=== PATIENT | male | born 1985 | race Caucasian/White ===

== ENCOUNTER 2018-04-28 06:46 | Day surgery (SDC) | payer MEDICAID ==
[~2018-04-28] VITALS: Ht 172.7 cm; Wt 73.9 kg
[2018-04-28] VITALS (7 sets, daily range): BP systolic 83–115; BP diastolic 69–82
[~2018-04-28 06:46] MED LIST: ACET-1008 GT; ALB0.5UD NEB; ATRO10DR EACHEYE; BISA10SU8 RC; CLOB20TA GT; CLON-527 GT; DIAZ1KIT2 RC; EUCA50OI5 TP; FAMO20TA8 GT; FOLI1TAB GT; IBUP-1984 GT; KEP500T GT; LACT-193 GT; LORA-512 GT; MAGN800O GT; NA P133E4 RC; POLY17PO10 GT; RISP0.257 GT; RISP0.5T74 GT; SENN-129 GT; VALP250S GT; famotidine 10mg/ml inj IV ONE; ringers solution, lacted 1,000 ML IV SCH
[2018-04-28] MEDS ORDERED: LIDOcaine 2% 10ml TOPICAL JELLY (Urojet) ONE (07:16)
[2018-04-28] MEDS ORDERED: oxymetazoline 15 ML nasal spray NS ONE (07:16)
[2018-04-28] MEDS ORDERED: LIDOcaine 1% (10mg/ml) 2ml vial ONE (07:22)
[2018-04-28] MEDS ORDERED: ringers solution, lacted 1,000 ML IV SCH (08:19)
[2018-04-28] MEDS ORDERED: labetalol 20mg/4ml (5mg/ml) syringe IV PRN (08:20)
[2018-04-28] MEDS ORDERED: fentaNYL/PF 50MCG/1 ML 2ML syringe IV PRN ×2 (08:20)
[2018-04-28] MEDS ORDERED: hydrALAZINE 20mg/ml inj. IV PRN (08:20)
[2018-04-28] MEDS ORDERED: ondansetron/PF 4mg/2ml inj IV PRN (08:20)
[2018-04-28] MEDS ORDERED: morphine 4 MG/ML inj SYRINge IV PRN ×2 (08:20)
[2018-04-28] MEDS ORDERED: sevoflurane 250ml liquid IH ONE (09:25)
[2018-04-28] MEDS ORDERED: dexamethasone sod phosphate 10mg/ml inj ONE (09:25)
[2018-04-28] MEDS ORDERED: ondansetron/PF 4mg/2ml inj ONE (09:25)
[2018-04-28] MEDS ORDERED: fentaNYL/PF 50MCG/1 ML 2ML syringe ONE ×2 (09:27→10:19)
[2018-04-28] MEDS ORDERED: midazolam 2 mg/2 ml injection ONE ×2 (09:28→10:19)
[2018-04-28] MEDS ORDERED: LIDOcaine 2% (20mg/ml) 5ml vial ONE (09:29)
[2018-04-28] MEDS ORDERED: propofol inj 20 ML IV ONE (09:29)
[2018-04-28] MEDS ORDERED: dexamethasone sod phosphate 4mg/ml inj. ONE (09:30)
[2018-04-28] MEDS ORDERED: rocuronium 10mg/ml inj IV ONE (09:30)
[2018-04-28] MEDS ORDERED: naloxone 0.4 mg/ml inj ONE (11:17)
== END 2018-04-28 12:29 | disposition home or self-care (01) ==
LOC: PAS 06:46
PROVIDERS: ATTEND Dentist
DX: K05.10 Chronic gingivitis, plaque induced (principal); K03.6 Deposits [accretions] on teeth; G40.909 Epilepsy, unspecified, not intractable, without status epilepticus; G80.8 Other cerebral palsy; F71 Moderate intellectual disabilities; J45.998 Other asthma; Z87.01 Personal history of pneumonia (recurrent); Z93.1 Gastrostomy status; Z79.891 Long term (current) use of opiate analgesic; Z88.1 Allergy status to other antibiotic agents; Z79.1 Long term (current) use of non-steroidal anti-inflammatories (NSAID); Z98.890 Other specified postprocedural states; Z79.899 Other long term (current) drug therapy
CPT/HCPCS: 41899; J1100; J2001; J2250; J2310; J2405; J2704; J3010; J3490; J7120; A7000

== ENCOUNTER 2022-11-27 08:41 | Inpatient (IN) | payer MEDICAID ==
[~2022-11-27] VITALS: Ht 167.6 cm; Wt 81.0 kg
[~2022-11-27 08:41] MED LIST changes: +BISA10SU11 RC; -BISA10SU8 RC; +MAGN24002 GT; -MAGN800O GT; -famotidine 10mg/ml inj IV ONE; -ringers solution, lacted 1,000 ML IV SCH
[2022-11-27] MEDS ORDERED: diatrozoate meglu/diatrozoate sod (37% iodine) 120ML oral solution PO ONE (09:45)
[2022-11-27] MEDS ORDERED: diatr meglu/diatrizoate 30ml oral sol.-(3 dose) bottle PO ONE (10:00)
--- NOTE | 2022-11-27 11:33 | NUR ---
Vital signs rechecked,hypoxic 89-90% on 4L oxygen.Payton made aware,wanted records from [facility] from Visit yesterday.
[2022-11-27] MEDS ORDERED: levetiracetam 100mg/ml oral solution 5ml UD cup PO ONE (12:36)
[2022-11-27 13:29] LABS: BASOPHILS % (AUTO) 0.1 % (0-1); EOSINOPHILS % (AUTO) 0 % (0-6); HEMATOCRIT 51.5 % (42.0-52.0); HEMOGLOBIN 17.7 g/dl (14.0-17.9); LYMPHOCYTES # (AUTO) 0.6 X10'3 (1.1-4.8); LYMPHOCYTES % (AUTO) 14.4 % (21-51); MEAN CORPUSCULAR HEMOGLOBIN 34.6 PG (27.0-31.0); MEAN CORPUSCULAR HGB CONC 34.5 g/dL (33.0-36.5); MEAN CORPUSCULAR VOLUME 100.3 FL (78-98); MEAN PLATELET VOLUME 9.7 FL (7.4-10.4); MONOCYTES # (AUTO) 0.1 X10'3 (0-0.9); MONOCYTES % (AUTO) 3.1 % (2-12); NEUTROPHILS # (AUTO) 3.6 X10'3 (1.8-7.7); NEUTROPHILS % (AUTO) 82.4 % (42-75); PLATELET COUNT 166 X10'3 (140-440); RED BLOOD COUNT 5.13 X10'6 (4.70-6.10); RED CELL DISTRIBUTION WIDTH 12.4 % (11.5-14.5); WHITE BLOOD COUNT 4.4 X10'3 (4.5-11.0)
[2022-11-27 13:34] LABS: ALANINE AMINOTRANSFERASE 24 U/L (12-78); ALBUMIN 3.5 G/DL (3.4-5.0); ALBUMIN/GLOBULIN RATIO 0.7 (1.1-1.5); ALKALINE PHOSPHATASE 104 IU/L (46-116); ANION GAP 5 (8-16); ASPARTATE AMINO TRANSFERASE 22 U/L (10-37); BILIRUBIN,TOTAL 0.4 MG/DL (0.1-1.0); BLOOD UREA NITROGEN 12 MG/DL (7-18); BUN/CREATININE RATIO 18.2 (10.0-20.0); CALCIUM 10.1 MG/DL (8.5-10.1); CHLORIDE 99 MMOL/L (99-107); CREATININE 0.66 MG/DL (0.60-1.10); GLUCOSE 130 MG/DL (70-104); POTASSIUM 4.4 MMOL/L (3.5-5.1); SODIUM 138 MMOL/L (135-145); TOTAL CARBON DIOXIDE 33.8 MMOL/L (24-32); TOTAL PROTEIN 8.5 G/DL (6.4-8.2); eGFR > 90 ML/MIN
--- NOTE | 2022-11-27 13:54 | NUR ---
Called pharmacy, gurjit will be available for orange picker in 15 minutes, Payton TURK made aware.
[2022-11-27] MEDS ORDERED: LIDOcaine 2% 10ml TOPICAL JELLY (Urojet) MM STA (14:21)
[2022-11-27] MEDS ORDERED: LidoCAINE 2% Topical Jelly 11mL syringe MM STA (14:24)
--- NOTE | 2022-11-27 14:59 | NUR ---
ERIC [phone] WORKED WITH PATIENT FOR 4 YEARS
[2022-11-27 15:13] LABS: D-DIMER 6.72 MG/L FEU (0-0.50)
[2022-11-27] MEDS ORDERED: iohexol 350MG/ML 100ml bottle IV ONE (16:16)
--- NOTE | 2022-11-27 17:17 | NUR ---
patient back in the room from CT.
[2022-11-27] MEDS ORDERED: piperacillin/tazo 3.375gm/50ml 50 ML IV ONE (18:20)
--- NOTE | 2022-11-27 20:09 | NUR ---
Large liquid avila BM
[2022-11-27] MEDS ORDERED: ondansetron/PF 4mg/2ml inj IV PRN (20:10)
[2022-11-27] MEDS ORDERED: acetaminophen 325mg tablet PO PRN ×2 (20:10)
[2022-11-27] MEDS ORDERED: magnesium 4gm in 100ml NS 100 ML IV PRN (20:10)
[2022-11-27] MEDS: normal saline 1000ml 1,000 ML IV SCH (20:10)
[2022-11-27] MEDS ORDERED: magnesium Cl slow-release 64mg tablet PO PRN (20:10)
[2022-11-27] MEDS ORDERED: potassium Cl 20 mEq SR tablet PO PRN ×2 (20:10)
[2022-11-27] MEDS ORDERED: potassium Cl 40MEQ/1/2NS 520ml 520 ML IV PRN (20:10)
[2022-11-28 02:10] LABS: BASOPHILS % (AUTO) 0.2 % (0-1); EOSINOPHILS % (AUTO) 0.2 % (0-6); HEMATOCRIT 48.5 % (42.0-52.0); HEMOGLOBIN 16.7 g/dl (14.0-17.9); LYMPHOCYTES # (AUTO) 2.5 X10'3 (1.1-4.8); LYMPHOCYTES % (AUTO) 29.5 % (21-51); MEAN CORPUSCULAR HEMOGLOBIN 34.5 PG (27.0-31.0); MEAN CORPUSCULAR HGB CONC 34.4 g/dL (33.0-36.5); MEAN CORPUSCULAR VOLUME 100.3 FL (78-98); MEAN PLATELET VOLUME 9.4 FL (7.4-10.4); MONOCYTES # (AUTO) 1.5 X10'3 (0-0.9); NEUTROPHILS # (AUTO) 4.4 X10'3 (1.8-7.7); NEUTROPHILS % (AUTO) 52.1 % (42-75); PLATELET COUNT 186 X10'3 (140-440); RED BLOOD COUNT 4.84 X10'6 (4.70-6.10); RED CELL DISTRIBUTION WIDTH 12.2 % (11.5-14.5); WHITE BLOOD COUNT 8.5 X10'3 (4.5-11.0)
[2022-11-28 02:32] LABS: ALANINE AMINOTRANSFERASE 18 U/L (12-78); ALBUMIN 3.3 G/DL (3.4-5.0); ALBUMIN/GLOBULIN RATIO 0.8 (1.1-1.5); ALKALINE PHOSPHATASE 93 IU/L (46-116); ANION GAP 6 (8-16); ASPARTATE AMINO TRANSFERASE 22 U/L (10-37); BILIRUBIN,TOTAL 0.5 MG/DL (0.1-1.0); BLOOD UREA NITROGEN 16 MG/DL (7-18); BUN/CREATININE RATIO 21.9 (10.0-20.0); CHLORIDE 103 MMOL/L (99-107); CREATININE 0.73 MG/DL (0.60-1.10); GLUCOSE 96 MG/DL (70-104); POTASSIUM 3.7 MMOL/L (3.5-5.1); SODIUM 140 MMOL/L (135-145); TOTAL CARBON DIOXIDE 30.6 MMOL/L (24-32); TOTAL PROTEIN 7.7 G/DL (6.4-8.2); eGFR > 90 ML/MIN
[2022-11-28 05:12] LABS: ANISOCYTOSIS FEW; PLATELET ESTIMATE NORMAL; TOTAL CELLS COUNTED 100
[2022-11-28] MEDS: cefepime 1GM/NS ADD-VANTAGE 100 ML IV SCH ×2 (06:46→21:41)
[2022-11-28] MEDS: heparin, porcine 5000 units/ml vial SQ SCH ×2 (08:00→21:49)
--- NOTE | 2022-11-28 08:50 | NUR ---
Pt's caregiver, Agatha ([phone]), at bedside and states pt is having a seizure. pt's seizure self resolved quickly. Agatha asking if seizure medications are going to be continued here. paged for pt.
--- NOTE | 2022-11-28 09:00 | NUR ---
Dr. Christianson called about pt's seizure medications. states to update med rec. Dr. Christianson asked if it's ok to use pt's Peg tube. per , ok to use. asked about pt's home feedings, if they are to be continued here. Per , "Dietary usually does that." Dietary consult placed.
[2022-11-28] MEDS ORDERED: METH-798 (09:20)
[2022-11-28] MEDS ORDERED: MIRT-88 PO (09:20)
[2022-11-28] MEDS ORDERED: CLOB10TA17 (09:20)
[2022-11-28] MEDS ORDERED: MULT-1085 PO (09:20)
[2022-11-28] MEDS ORDERED: LACO200T2 PO (09:20)
[2022-11-28] MEDS ORDERED: DIAZEPAM 10 MG RC PRN (09:30)
[2022-11-28] MEDS ORDERED: sennosides/docusate sodium tablet PEG PRN (09:30)
[2022-11-28] MEDS ORDERED: clonazePAM 1mg tablet PEG PRN (09:30)
[2022-11-28] MEDS ORDERED: bisacodyl 10mg suppository rectal RC PRN (09:30)
--- NOTE | 2022-11-28 10:03 | NUR ---
TF Consult: Pt hx developmental delay and cerebral palsy GTF dependent per EMR/RN today. Pt admit s/p G-tube falling out now w/ G-tube replaced but DX suspected aspiration PNA per EMR. GTF to resume today per DO; updated recs below w/ slight change to home EN recs given DX. Per caregiver Agatha [phone], pt uses 5 cans Jevity 1.2 for QID feeds 1.5 cans first two boluses and two cans last two boluses. This would actually be 7 cartons/day of Jevity 1.2 which would be more appropriate to meet pt needs. Home EN recs providing 1659ml, 1991 kcals, 1339ml water, and 92g protein. Per Agatha, UBW ~176 pounds consistent with current wt in EMR. Large BM / per EMR. Will monitor for TF tolerance and adjustment needs as medically indicated. Rec: 1. Bolus TF per G-tube QID per MD using Jevity 1.2 356ml(1.5 carton) bolus first two feeds and 474ml(2 cartons) bolus last two feeds since pt home regimen. To provide 1659ml volume/day, 1991 kcals, 1339ml water, and 92g protein 2. additional water flush 85ml before/after feeds; monitor serum Na 3. monitor for EN tolerance and adjustment needs 4. routine MVI supplementation since pt takes at home w/ elevated MCV 100.3 per physician discretion 5. routine bowel care 6. weekly wts Addendum: 11/28/22 at [address] Amended: Links added. Addendum: 11/28/22 at [address] TF Consult: Pt hx developmental delay and cerebral palsy GTF dependent per EMR/RN today. Pt admit s/p G-tube falling out now w/ G-tube replaced but DX suspected aspiration PNA per EMR. GTF to resume today per DO; updated recs below w/ slight change to home EN recs given DX. Per caregiver Agatha [phone], pt uses 5 cans Jevity 1.2 for QID feeds 1.5 cans first two boluses and two cans last two boluses. This would actually be 7 cartons/day of Jevity 1.2 which would be more appropriate to meet pt needs. Home EN recs providing 1659ml, 1991 kcals, 1339ml water, and 92g protein. Per Agatha, UBW ~176 pounds consistent with current wt in EMR. Large BM 4/1 per EMR. Will monitor for TF tolerance and adjustment needs as medically indicated. Rec: 1. Bolus TF per G-tube QID per MD using Jevity 1.2 356ml(1.5 carton) bolus first two feeds and 474ml(2 cartons) bolus last two feeds since pt home regimen. To provide 1659ml volume/day, 1991 kcals, 1339ml water, and 92g protein 2. additional water flush 85ml before/after feeds; monitor serum Na 3. monitor for EN tolerance and adjustment needs 4. PALB Q /; daily scaled wts 5. routine MVI supplementation since pt takes at home w/ elevated MCV 100.3 per physician discretion 6. routine bowel care
[2022-11-28] MEDS ORDERED: non-formulary drug (Na Phos,M-B/Na Phos,Di-Ba* (Fleet's Enema*) 1 BOTTLE) RC PRN (10:50)
[2022-11-28] MEDS ORDERED: magnesium hydroxide 30ml (MOM) UD suspension OGT PRN (10:50)
[2022-11-28] MEDS ORDERED: polyethylene glycol 3350 17gm powd pack GT PRN (10:50)
--- NOTE | 2022-11-28 11:08 | NUR ---
PLATELETS 186
[2022-11-28] MEDS ORDERED: LACOSAMIDE (Vimpat) 100mg/10ml (10 MG/ML) oral UD solution OGT SCH (11:24)
[2022-11-28] MEDS ORDERED: levetiracetam 100mg/ml oral solution 5ml UD cup OGT SCH (11:24)
--- NOTE | 2022-11-28 11:27 | NUR ---
428 ml of jevity 1.2 given through peg tube. peg tube flushed with 60 ml of water prior to feeding and 100 ml after feeding. pt tolerated well. Dr. Francis at bedside.
[2022-11-28] MEDS ORDERED: magnesium hydroxide 30ml (MOM) UD suspension PEG PRN (11:41)
[2022-11-28] MEDS ORDERED: MIRT7.5T11 PO (11:46)
[2022-11-28] MEDS ORDERED: IBUP-2766 PO (12:06)
[2022-11-28] MEDS ORDERED: TRAZ-251 PO (12:08)
[2022-11-28] MEDS: normal saline 1000ml 1,000 ML IV SCH (12:25)
[2022-11-28] MEDS ORDERED: levetiracetam 100mg/ml oral solution 5ml UD cup PO ONE (12:45)
[2022-11-28] MEDS ORDERED: valproate sod 250mg/5ml UD oral syrup PO ONE (12:45)
[2022-11-28] MEDS ORDERED: LACOSAMIDE (Vimpat) 100mg/10ml (10 MG/ML) oral UD solution PO ONE (12:45)
--- NOTE | 2022-11-28 14:38 | NUR ---
PT SLEEPING. CONDOM CATH ON PT. PT TURNED TOWARDS LEFT SIDE. PT SHIFTED LYING ON HIS BACK
--- NOTE | 2022-11-28 16:37 | NUR ---
Dr. Francis contacted about pt not voiding during day shift. per , do a bladder scanner. Per Dr. Francis, "If there is greater than 500, place catheter, but use a urojet."
--- NOTE | 2022-11-28 16:57 | NUR ---
Dr. Francis aware of urine amount seen on bladder scanner. per MD, no need for huddleston right now. Pt to have another bladder scanner in 6 hours
--- NOTE | 2022-11-28 17:56 | NUR ---
428 ml of jevity 1.2 given . 160 ml of water fluhed through peg tube. pt sleeping and tolerated well. condom cath off. pillow floating b/l heels.
[2022-11-28 20:00] VITALS: BP 111/66
[2022-11-28] MEDS ORDERED: mirtazapine 15mg tablet PO SCH ×2 (21:00)
[2022-11-28] MEDS ORDERED: risperiDONE 0.5mg tablet PEG SCH (21:00)
[2022-11-28] MEDS ORDERED: non-formulary drug (Mirtazapine 1 TAB) PO SCH (21:00)
[2022-11-28] MEDS: valproate sod 250mg/5ml UD oral syrup PEG SCH (21:46)
[2022-11-28] MEDS: levetiracetam 100mg/ml oral solution 5ml UD cup PEG SCH (21:47)
[2022-11-28] MEDS: famotidine 20mg tablet PEG SCH (21:47)
[2022-11-28] MEDS: LACOSAMIDE (Vimpat) 100mg/10ml (10 MG/ML) oral UD solution PEG SCH (21:48)
[2022-11-28 22:00] VITALS: BP 107/52
[2022-11-29] MEDS: normal saline 1000ml 1,000 ML IV SCH (00:49)
[2022-11-29 06:00] VITALS: BP 107/65
[2022-11-29] MEDS ORDERED: MULTIVIT-MIN/FERROUS GLUCONATE 9 MG/15 ML LIQUID PEG SCH (08:00)
[2022-11-29] MEDS ORDERED: lactose-reduced food/fiber (Jevity 1.2 Cal) 237ml BOTTLE GT SCH (08:00)
[2022-11-29] MEDS: LACOSAMIDE (Vimpat) 100mg/10ml (10 MG/ML) oral UD solution PEG SCH (08:00)
[2022-11-29] MEDS: cefepime 1GM/NS ADD-VANTAGE 100 ML IV SCH (08:03)
[2022-11-29 08:21] LABS: HEMATOCRIT 44.5 % (42.0-52.0); HEMOGLOBIN 14.9 g/dl (14.0-17.9); MEAN CORPUSCULAR HGB CONC 33.4 g/dL (33.0-36.5); MEAN PLATELET VOLUME 9.2 FL (7.4-10.4); PLATELET COUNT 193 X10'3 (140-440); RED BLOOD COUNT 4.36 X10'6 (4.70-6.10); RED CELL DISTRIBUTION WIDTH 12.1 % (11.5-14.5); WHITE BLOOD COUNT 5.2 X10'3 (4.5-11.0)
[2022-11-29 08:25] LABS: ALANINE AMINOTRANSFERASE 25 U/L (12-78); ALBUMIN 2.8 G/DL (3.4-5.0); ALBUMIN/GLOBULIN RATIO 0.7 (1.1-1.5); ALKALINE PHOSPHATASE 78 IU/L (46-116); ANION GAP 2 (8-16); ASPARTATE AMINO TRANSFERASE 24 U/L (10-37); BILIRUBIN,TOTAL 0.4 MG/DL (0.1-1.0); BLOOD UREA NITROGEN 14 MG/DL (7-18); BUN/CREATININE RATIO 24.1 (10.0-20.0); CALCIUM 8.9 MG/DL (8.5-10.1); CHLORIDE 107 MMOL/L (99-107); CREATININE 0.58 MG/DL (0.60-1.10); GLUCOSE 89 MG/DL (70-104); POTASSIUM 3.9 MMOL/L (3.5-5.1); PREALBUMIN 21.5 MG/DL (19-36); SODIUM 142 MMOL/L (135-145); TOTAL CARBON DIOXIDE 33.5 MMOL/L (24-32); TOTAL PROTEIN 6.7 G/DL (6.4-8.2); eGFR > 90 ML/MIN
[2022-11-29] MEDS: heparin, porcine 5000 units/ml vial SQ SCH (08:31)
[2022-11-29] MEDS: famotidine 20mg tablet PEG SCH (08:32)
[2022-11-29] MEDS: valproate sod 250mg/5ml UD oral syrup PEG SCH (08:33)
[2022-11-29] MEDS: levetiracetam 100mg/ml oral solution 5ml UD cup PEG SCH (08:33)
[2022-11-29 08:55] LABS: TOTAL CELLS COUNTED 100
[2022-11-29 09:00] LABS: PLATELET ESTIMATE NORMAL
[2022-11-29 10:00] VITALS: BP 131/80
[2022-11-29] MEDS ORDERED: CEFD300C3 PO (10:31)
--- NOTE | 2022-11-29 13:15 | NUR ---
Pt dc to previous [facility], transportation via board and care with staff accompanying pt. PIV dc with no complications or s/s of infiltration. Rectal tube that was previously placed by ER staff was DC with no complications prior to dc. Pt 1200 tube feeding was held at [facility] request to complete the feeding at home. All dc instructions and education was provided to board and care staff at time of dc. Presciptions were sent physically with board and care staff and also called into [facility] terminal make up operator care pharmacy by this nurse. Pt was dc with all belongings. VSS, pt at baseline level of comunication and functions per board and care staff.
== END 2022-11-29 13:15 | disposition home or self-care (01) | DRG 252 ==
LOC: ER 08:43 → ED HOLD 20:14 → ORTHO 4S 11-28 19:44
PROVIDERS: ADMIT Internal Medicine; ATTEND Family Medicine
PROC: 0DH63UZ Insertion of Feeding Device into Stomach, Percutaneous Approach (ICD-10-PCS; principal; 2022-11-27)
PROC: B32T1ZZ Computerized Tomography (CT Scan) of Left Pulmonary Artery using Low Osmolar Contrast (ICD-10-PCS; 2022-11-27)
PROC: B3201ZZ Computerized Tomography (CT Scan) of Thoracic Aorta using Low Osmolar Contrast (ICD-10-PCS; 2022-11-27)
PROC: B32S1ZZ Computerized Tomography (CT Scan) of Right Pulmonary Artery using Low Osmolar Contrast (ICD-10-PCS; 2022-11-27)
DX: K94.23 Gastrostomy malfunction (principal); J96.00 Acute respiratory failure, unspecified whether with hypoxia or hypercapnia; J69.0 Pneumonitis due to inhalation of food and vomit; G80.8 Other cerebral palsy; F41.9 Anxiety disorder, unspecified; G40.909 Epilepsy, unspecified, not intractable, without status epilepticus; Y73.8 Miscellaneous gastroenterology and urology devices associated with adverse incidents, not elsewhere classified; Y92.89 Other specified places as the place of occurrence of the external cause; Z88.1 Allergy status to other antibiotic agents; Z79.899 Other long term (current) drug therapy
CPT/HCPCS: 36415; 71045; 71275; 74018; 80053; 83605; 83880; 84134; 84145; 84484; 85007; 85025; 85379; 87040; 87081; 93005; 99285; A4349; G0378; J0692; J1644; J1953; J2543; J3490; J7030; Q9963; Q9967

== ENCOUNTER 2023-04-27 11:10 | Emergency (ER) | payer MEDICAID ==
[~2023-04-27] VITALS: Ht 175.3 cm; Wt 78.2 kg
[~2023-04-27 11:10] MED LIST changes: +CEFD300C3 PO; +CLOB10TA17; -CLOB20TA GT; -IBUP-1984 GT; +IBUP-2766 PO; +LACO200T2 PO; -LORA-512 GT; +METH-798; +MIRT7.5T11 PO; +MULT-1085 PO; -RISP0.257 GT; +TRAZ-251 PO
[2023-04-27 11:46] VITALS: BP 107/78; PULSE 71; RESP 18; TEMP 97.6; O2SAT 98
== END 2023-04-27 14:49 | disposition home or self-care (01) ==
LOC: ER 11:10
DX: K94.23 Gastrostomy malfunction (principal); Z88.1 Allergy status to other antibiotic agents; Z88.8 Allergy status to other drugs, medicaments and biological substances
CPT/HCPCS: 99282; 99284

== ENCOUNTER 2024-01-20 21:27 | Emergency (ER) | payer MEDICAID ==
[~2024-01-20] VITALS: Ht 175.3 cm; Wt 68.0 kg
[~2024-01-20 21:27] MED LIST changes: -CLOB10TA17; +CLOB10TA5
[2024-01-20 21:50] VITALS: BP 111/71; PULSE 52; TEMP 97.3; O2SAT 96
[2024-01-20 22:54] VITALS: RESP 16
[2024-01-20] MEDS: diatr meglu/diatrizoate 30ml oral sol.-(3 dose) bottle PO ONE (22:58)
[2024-01-20] MEDS: diatrozoate meglu/diatrozoate sod (37% iodine) 120ML oral solution PO ONE (22:59)
== END 2024-01-21 00:53 | disposition home or self-care (01) ==
LOC: ER 21:27
DX: K94.29 Other complications of gastrostomy (principal); Z88.1 Allergy status to other antibiotic agents; Z79.899 Other long term (current) drug therapy; Z79.2 Long term (current) use of antibiotics
CPT/HCPCS: 43762; 74018; 99284; B4087; Q9963; A4340

== ENCOUNTER 2024-04-13 11:31 | Inpatient (IN) | payer MEDICAID ==
[~2024-04-13] VITALS: Ht 172.7 cm; Wt 83.0 kg
[~2024-04-13 11:31] MED LIST changes: -CLOB10TA5; +CLOB10TA5 GT; +LACO200T2 GT; -LACO200T2 PO
[2024-04-13 12:35] LABS: ALANINE AMINOTRANSFERASE 36 U/L (12-78); ALBUMIN 3.5 G/DL (3.4-5.0); ALBUMIN/GLOBULIN RATIO 0.9 (1.1-1.5); ALKALINE PHOSPHATASE 122 IU/L (46-116); ANION GAP 5 (8-16); BILIRUBIN,TOTAL 0.5 MG/DL (0.1-1.0); BLOOD UREA NITROGEN 12 MG/DL (7-18); BUN/CREATININE RATIO 18.8 (10.0-20.0); CALCIUM 9.7 MG/DL (8.5-10.1); CHLORIDE 99 MMOL/L (99-107); CREATININE 0.64 MG/DL (0.60-1.10); GLUCOSE 90 MG/DL (70-104); SODIUM 137 MMOL/L (135-145); TOTAL CARBON DIOXIDE 33.5 MMOL/L (24-32); TOTAL PROTEIN 7.6 G/DL (6.4-8.2); eCRCL 154 ML/MIN; eGFR > 90 ML/MIN
[2024-04-13 12:43] LABS: PRO BRAIN NATRIURETIC PEPTIDE < 30 PG/ML (0-125)
[2024-04-13 12:46] LABS: ASPARTATE AMINO TRANSFERASE 21 U/L (10-37); POTASSIUM 4.3 MMOL/L (3.5-5.1)
[2024-04-13 13:30] LABS: BASOPHILS % (AUTO) 0.4 % (0-1); EOSINOPHILS % (AUTO) 0.7 % (0-6); HEMATOCRIT 49.4 % (42.0-52.0); HEMOGLOBIN 16.8 g/dl (14.0-17.9); LYMPHOCYTES # (AUTO) 2.3 X10'3 (1.1-4.8); MEAN CORPUSCULAR HEMOGLOBIN 34.1 PG (27.0-31.0); MEAN CORPUSCULAR VOLUME 100.1 FL (78-98); MEAN PLATELET VOLUME 9.7 FL (7.4-10.4); MONOCYTES # (AUTO) 0.6 X10'3 (0-0.9); MONOCYTES % (AUTO) 12.1 % (2-12); NEUTROPHILS % (AUTO) 40.8 % (42-75); PLATELET COUNT 186 X10'3 (140-440); RED BLOOD COUNT 4.93 X10'6 (4.70-6.10); RED CELL DISTRIBUTION WIDTH 12.8 % (11.5-14.5)
[2024-04-13] MEDS ORDERED: magnesium sulf-water 2g/50mL 50 ML IV PRN (14:15)
[2024-04-13] MEDS ORDERED: potassium Cl 40MEQ/1/2NS 520ml 520 ML IV PRN (14:15)
[2024-04-13] MEDS ORDERED: mag hydrox/Alum hydrox/simeth 30ml oral suspension PO PRN (14:15)
[2024-04-13] MEDS ORDERED: acetaminophen 325mg tablet PO PRN (14:15)
[2024-04-13] MEDS ORDERED: morphine 2 MG/ML inj. syringe IV PRN ×2 (14:15)
[2024-04-13] MEDS ORDERED: potassium Cl 20 mEq SR tablet PO PRN ×2 (14:15)
[2024-04-13] MEDS ORDERED: magnesium sulf-water 4G/100mL 100 ML IV PRN (14:15)
[2024-04-13] MEDS ORDERED: magnesium hydroxide 30ml (MOM) UD suspension PO PRN (14:15)
[2024-04-13] MEDS ORDERED: ondansetron/PF 4mg/2ml inj IV PRN (14:15)
[2024-04-13] MEDS: azithromycin 200mg/5ml oral suspension via UD syringe PEG ONE (14:33)
[2024-04-13] MEDS: azithromycin/NS 500mg/250ml 250 ML IV ONE (14:46)
[2024-04-13] MEDS: normal saline 1000ml 1,000 ML IV SCH (14:46)
[2024-04-13] MEDS ORDERED: diazepam inj 5 MG/ML inj. IV PRN (16:10)
[2024-04-13] MEDS ORDERED: VALP250S3 GT (16:23)
[2024-04-13] MEDS ORDERED: CLON1TAB12 GT (16:23)
[2024-04-13] MEDS ORDERED: LEVE100S GT (16:23)
[2024-04-13] MEDS ORDERED: CENTRUM GT (16:23)
[2024-04-13] MEDS ORDERED: METH-798 GT (16:23)
[2024-04-13] MEDS ORDERED: ALBU2.5V10 NEB (16:23)
[2024-04-13] MEDS ORDERED: LORA5SOL69 GT (16:23)
[2024-04-13] MEDS ORDERED: LACO10SO GT (16:23)
[2024-04-13] MEDS: piperacillin/tazo 4.5gm/100ml 100 ML IV SCH (16:51)
[2024-04-13 17:37] VITALS: BP 103/60; PULSE 61; RESP 20; TEMP 96.8; O2SAT 94
[2024-04-13 18:00] VITALS: BP 106/61; PULSE 61; RESP 18; TEMP 96.8; O2SAT 96
[2024-04-13] MEDS: K and/or MAG REPLACEMENT MC SCH (19:26)
[2024-04-13] MEDS: docusate sod 100mg capsule PO SCH (20:00)
[2024-04-13] MEDS: valproic acid 250mg/5ml UD oral syrup PEG SCH (21:01)
[2024-04-13] MEDS: levetiracetam 250mg tablet PEG SCH (21:01)
[2024-04-13] MEDS: LACOSAMIDE 50 MG TABLET PO SCH (21:01)
[2024-04-13] MEDS: enoxaparin 40mg/0.4ml syringe SQ SCH (21:02)
[2024-04-13 22:00] VITALS: BP 139/71; PULSE 65; RESP 16; TEMP 97.2; O2SAT 99
[2024-04-14] VITALS (7 sets, daily range): BP systolic 89–113; BP diastolic 54–80; PULSE 44–54; RESP 14–17; TEMP 96.8–98; O2SAT 92–98
[2024-04-14] MEDS ORDERED: dextrose 5%-1/2 normal saline 1,000 ML IV SCH (00:30)
[2024-04-14] MEDS: dextrose 5%-water 1,000 ML IV SCH (01:02)
[2024-04-14 06:34] LABS: EOSINOPHILS % (AUTO) 0.8 % (0-6); MEAN PLATELET VOLUME 9.6 FL (7.4-10.4); MONOCYTES # (AUTO) 0.3 X10'3 (0-0.9)
[2024-04-14 06:36] LABS: BASOPHILS % (AUTO) 0.3 % (0-1); HEMATOCRIT 43.1 % (42.0-52.0); HEMOGLOBIN 14.7 g/dl (14.0-17.9); LYMPHOCYTES # (AUTO) 3.2 X10'3 (1.1-4.8); MEAN CORPUSCULAR HEMOGLOBIN 34.1 PG (27.0-31.0); MEAN CORPUSCULAR HGB CONC 34.2 g/dL (33.0-36.5); MEAN CORPUSCULAR VOLUME 99.6 FL (78-98); MONOCYTES % (AUTO) 6.5 % (2-12); NEUTROPHILS % (AUTO) 22.4 % (42-75); PLATELET COUNT 174 X10'3 (140-440); RED BLOOD COUNT 4.32 X10'6 (4.70-6.10); RED CELL DISTRIBUTION WIDTH 12.6 % (11.5-14.5); WHITE BLOOD COUNT 4.5 X10'3 (4.5-11.0)
[2024-04-14 07:02] LABS: ALANINE AMINOTRANSFERASE 19 U/L (12-78); ALBUMIN 2.7 G/DL (3.4-5.0); ALBUMIN/GLOBULIN RATIO 0.8 (1.1-1.5); ALKALINE PHOSPHATASE 85 IU/L (46-116); ANION GAP 5 (8-16); ASPARTATE AMINO TRANSFERASE 17 U/L (10-37); BILIRUBIN,TOTAL 0.5 MG/DL (0.1-1.0); BLOOD UREA NITROGEN 7 MG/DL (7-18); BUN/CREATININE RATIO 16.7 (10.0-20.0); CALCIUM 8.6 MG/DL (8.5-10.1); CHLORIDE 102 MMOL/L (99-107); CREATININE 0.42 MG/DL (0.60-1.10); GLUCOSE 100 MG/DL (70-104); MAGNESIUM 1.8 MG/DL (1.5-2.4); POTASSIUM 3.8 MMOL/L (3.5-5.1); SODIUM 136 MMOL/L (135-145); TOTAL CARBON DIOXIDE 28.9 MMOL/L (24-32); eCRCL 235 ML/MIN; eGFR > 90 ML/MIN
[2024-04-14 08:01] LABS: PLATELET ESTIMATE NORMAL; TOTAL CELLS COUNTED 100
[2024-04-14] MEDS ORDERED: diatr meglu/diatrizoate 30ml oral sol.-(3 dose) bottle ONE (15:04)
[2024-04-14] MEDS: diatrozoate meglu/diatrozoate sod (37% iodine) 120ML oral solution PO ONE (15:19)
[2024-04-14] MEDS: docusate sodium 100mg/10ml UD cup PO SCH (18:31)
[2024-04-15 06:00] VITALS: BP 109/58; PULSE 60; RESP 16; TEMP 96.8; O2SAT 97
[2024-04-15 08:00] LABS: BASOPHILS % (AUTO) 0.5 % (0-1); EOSINOPHILS # (AUTO) 0.1 X10'3 (0-0.9); EOSINOPHILS % (AUTO) 1.4 % (0-6); HEMATOCRIT 49.5 % (42.0-52.0); LYMPHOCYTES # (AUTO) 2.5 X10'3 (1.1-4.8); LYMPHOCYTES % (AUTO) 44.7 % (21-51); MEAN CORPUSCULAR HEMOGLOBIN 34.1 PG (27.0-31.0); MEAN CORPUSCULAR HGB CONC 34.4 g/dL (33.0-36.5); MEAN CORPUSCULAR VOLUME 99.2 FL (78-98); MEAN PLATELET VOLUME 10.5 FL (7.4-10.4); MONOCYTES # (AUTO) 0.5 X10'3 (0-0.9); MONOCYTES % (AUTO) 9.4 % (2-12); NEUTROPHILS # (AUTO) 2.5 X10'3 (1.8-7.7); PLATELET COUNT 173 X10'3 (140-440); RED BLOOD COUNT 4.99 X10'6 (4.70-6.10); RED CELL DISTRIBUTION WIDTH 12.7 % (11.5-14.5); WHITE BLOOD COUNT 5.6 X10'3 (4.5-11.0)
[2024-04-15 08:19] LABS: ALANINE AMINOTRANSFERASE 19 U/L (12-78); ALBUMIN 3.3 G/DL (3.4-5.0); ALBUMIN/GLOBULIN RATIO 0.8 (1.1-1.5); ALKALINE PHOSPHATASE 103 IU/L (46-116); ANION GAP 7 (8-16); ASPARTATE AMINO TRANSFERASE 16 U/L (10-37); BILIRUBIN,TOTAL 0.4 MG/DL (0.1-1.0); BLOOD UREA NITROGEN 3 MG/DL (7-18); BUN/CREATININE RATIO 6.3 (10.0-20.0); CALCIUM 9.4 MG/DL (8.5-10.1); CHLORIDE 99 MMOL/L (99-107); CREATININE 0.48 MG/DL (0.60-1.10); GLUCOSE 79 MG/DL (70-104); MAGNESIUM 1.6 MG/DL (1.5-2.4); POTASSIUM 3.7 MMOL/L (3.5-5.1); SODIUM 136 MMOL/L (135-145); TOTAL CARBON DIOXIDE 30.2 MMOL/L (24-32); TOTAL PROTEIN 7.3 G/DL (6.4-8.2); eCRCL 206 ML/MIN; eGFR > 90 ML/MIN
[2024-04-15 08:52] LABS: C DIFF ANTIGEN NEGATIVE (NEGATIVE); C DIFF SPECIMEN=DIARRHEA? ACCEPTABLE; C DIFFICILE TOXINS A&B NEGATIVE (Neg)
[2024-04-15 10:00] VITALS: BP 119/80; PULSE 72; RESP 15; TEMP 98.4; O2SAT 96
[2024-04-15 18:00] VITALS: BP 107/64; PULSE 61; RESP 12; TEMP 97.4; O2SAT 95
[2024-04-15 22:00] VITALS: BP 127/86; PULSE 66; RESP 16; TEMP 96.9; O2SAT 95
[2024-04-16 04:16] VITALS: O2SAT 96
[2024-04-16 06:00] VITALS: BP 153/90; PULSE 76; RESP 16; TEMP 97.8; O2SAT 96
[2024-04-16 07:10] LABS: BASOPHILS % (AUTO) 0.2 % (0-1); EOSINOPHILS % (AUTO) 0.6 % (0-6); HEMATOCRIT 50.8 % (42.0-52.0); HEMOGLOBIN 17.2 g/dl (14.0-17.9); LYMPHOCYTES # (AUTO) 2.5 X10'3 (1.1-4.8); LYMPHOCYTES % (AUTO) 44.3 % (21-51); MEAN CORPUSCULAR HEMOGLOBIN 33.4 PG (27.0-31.0); MEAN CORPUSCULAR HGB CONC 33.9 g/dL (33.0-36.5); MEAN CORPUSCULAR VOLUME 98.4 FL (78-98); MEAN PLATELET VOLUME 9.6 FL (7.4-10.4); MONOCYTES # (AUTO) 0.6 X10'3 (0-0.9); MONOCYTES % (AUTO) 10.3 % (2-12); NEUTROPHILS # (AUTO) 2.5 X10'3 (1.8-7.7); NEUTROPHILS % (AUTO) 44.6 % (42-75); PLATELET COUNT 190 X10'3 (140-440); RED BLOOD COUNT 5.16 X10'6 (4.70-6.10); RED CELL DISTRIBUTION WIDTH 12.5 % (11.5-14.5); WHITE BLOOD COUNT 5.5 X10'3 (4.5-11.0)
[2024-04-16 07:24] LABS: ALANINE AMINOTRANSFERASE 19 U/L (12-78); ALBUMIN 3.4 G/DL (3.4-5.0); ALBUMIN/GLOBULIN RATIO 0.9 (1.1-1.5); ALKALINE PHOSPHATASE 104 IU/L (46-116); ANION GAP 7 (8-16); ASPARTATE AMINO TRANSFERASE 17 U/L (10-37); BILIRUBIN,TOTAL 0.3 MG/DL (0.1-1.0); BLOOD UREA NITROGEN 8 MG/DL (7-18); BUN/CREATININE RATIO 13.6 (10.0-20.0); CALCIUM 9.4 MG/DL (8.5-10.1); CHLORIDE 99 MMOL/L (99-107); CREATININE 0.59 MG/DL (0.60-1.10); GLUCOSE 79 MG/DL (70-104); POTASSIUM 4.1 MMOL/L (3.5-5.1); PREALBUMIN 30.4 MG/DL (19-36); SODIUM 137 MMOL/L (135-145); TOTAL CARBON DIOXIDE 31.2 MMOL/L (24-32); TOTAL PROTEIN 7.4 G/DL (6.4-8.2); eCRCL 167 ML/MIN; eGFR > 90 ML/MIN
[2024-04-16 10:00] VITALS: BP 96/66; PULSE 57; RESP 12; TEMP 97.5; O2SAT 95
[2024-04-16 11:44] LABS: C-REACTIVE PROTEIN 1.15 MG/DL (0.0-0.5)
[2024-04-16 18:00] VITALS: BP 103/72; PULSE 59; RESP 14; TEMP 97.3; O2SAT 98
[2024-04-16 22:00] VITALS: BP 104/68; PULSE 64; RESP 18; TEMP 96.6; O2SAT 97
[2024-04-17 00:14] VITALS: O2SAT 97
[2024-04-17 04:52] LABS: HEMATOCRIT 51.4 % (42.0-52.0); HEMOGLOBIN 17.7 g/dl (14.0-17.9); MEAN CORPUSCULAR HEMOGLOBIN 34.3 PG (27.0-31.0); MEAN CORPUSCULAR HGB CONC 34.5 g/dL (33.0-36.5); MEAN CORPUSCULAR VOLUME 99.5 FL (78-98); PLATELET COUNT 195 X10'3 (140-440); RED BLOOD COUNT 5.17 X10'6 (4.70-6.10); RED CELL DISTRIBUTION WIDTH 12.8 % (11.5-14.5); WHITE BLOOD COUNT 6.5 X10'3 (4.5-11.0)
[2024-04-17 05:16] LABS: ALANINE AMINOTRANSFERASE 19 U/L (12-78); ALBUMIN 3.4 G/DL (3.4-5.0); ALBUMIN/GLOBULIN RATIO 0.8 (1.1-1.5); ALKALINE PHOSPHATASE 100 IU/L (46-116); ANION GAP 9 (8-16); ASPARTATE AMINO TRANSFERASE 20 U/L (10-37); BILIRUBIN,TOTAL 0.3 MG/DL (0.1-1.0); BLOOD UREA NITROGEN 9 MG/DL (7-18); BUN/CREATININE RATIO 15.5 (10.0-20.0); CALCIUM 9.6 MG/DL (8.5-10.1); CHLORIDE 101 MMOL/L (99-107); CREATININE 0.58 MG/DL (0.60-1.10); GLUCOSE 86 MG/DL (70-104); MAGNESIUM 2.2 MG/DL (1.5-2.4); POTASSIUM 3.9 MMOL/L (3.5-5.1); SODIUM 138 MMOL/L (135-145); THYROID STIMULATING HORMONE 9.68 ulU/ml (0.34-4.50); TOTAL CARBON DIOXIDE 28.4 MMOL/L (24-32); TOTAL PROTEIN 7.5 G/DL (6.4-8.2); VALPROATE 84 UG/ML (50-100); eCRCL 170 ML/MIN; eGFR > 90 ML/MIN
[2024-04-17 07:43] LABS: TOTAL CELLS COUNTED 100
[2024-04-17 07:44] LABS: PLATELET ESTIMATE NORMAL; SMUDGE CELLS 1+
[2024-04-17 08:00] VITALS: RESP 18; O2SAT 97
[2024-04-17] MEDS: lactulose 20gm/30ml cup GT SCH (08:52)
[2024-04-17 10:00] VITALS: BP 118/66; PULSE 96; RESP 18; TEMP 97.7; O2SAT 95
[2024-04-17 11:45] VITALS: BP 117/73; PULSE 63; RESP 18; TEMP 97.1; O2SAT 97
[2024-04-17] MEDS ORDERED: LEVE250T GT (12:43)
[2024-04-17] MEDS ORDERED: VALP250S4 GT (12:43)
[2024-04-18] MEDS ORDERED: levoTHYROXINE 25mcg tablet GT SCH (07:00)
== END 2024-04-17 14:00 | disposition home or self-care (01) | DRG 137 ==
LOC: ER 11:32 → ED HOLD 14:18 → ORTHO 4S 17:26
PROVIDERS: ADMIT Family Medicine; ATTEND Family Medicine
DX: J69.0 Pneumonitis due to inhalation of food and vomit (principal); J96.01 Acute respiratory failure with hypoxia; G93.41 Metabolic encephalopathy; G40.909 Epilepsy, unspecified, not intractable, without status epilepticus; G80.9 Cerebral palsy, unspecified; Z20.822 Contact with and (suspected) exposure to COVID-19; Z79.899 Other long term (current) drug therapy; Z88.1 Allergy status to other antibiotic agents
CPT/HCPCS: 36415; 71045; 74018; 80053; 80164; 80177; 82140; 82948; 83605; 83735; 83880; 84134; 84145; 84443; 85007; 85025; 85651; 86140; 87040; 87081; 87324; 87449; 87811; 99285; A4349; A6212; A6258; A6449; A6590; G0378; J0456; J1650; J2543; J7030; J7070; Q9963

== ENCOUNTER 2024-12-29 09:30 | Inpatient (IN) | payer MEDICAID ==
[~2024-12-29] VITALS: Ht 152.4 cm; Wt 57.9 kg
[~2024-12-29 09:30] MED LIST changes: -ACET-1008 GT; -ALB0.5UD NEB; +ALBU2.5V10 NEB; -ATRO10DR EACHEYE; -CEFD300C3 PO; +CENTRUM GT; -CLON-527 GT; +CLON1TAB12 GT; -FOLI1TAB GT; -IBUP-2766 PO; -KEP500T GT; +LEVE250T GT; +LORA5SOL69 GT; -MAGN24002 GT; -METH-798; +METH-798 GT; -MIRT7.5T11 PO; -MULT-1085 PO; -NA P133E4 RC; -POLY17PO10 GT; -RISP0.5T74 GT; -TRAZ-251 PO; -VALP250S GT; +VALP250S4 GT
--- NOTE | 2024-12-29 09:37 | Physician Documentation ---
History of Present Illness ~ Stated Complaint: ALOC Time Seen by MD: 09:34 Primary Medical Doctor: SARAHY Conklin HPI 39-year-old male with cerebral palsy presents to the ED from facility for increased LOC. According to the facility patient normally he was able to follow commands however this morning he has been unable to follow commands and has had a productive cough. Does have a history of aspiration pneumonia. EMS denies any fever ,reports tachycardia. Patient does have a reported history of seizures however the facility made no mention of patient having a seizure today Did say that the patient was 89% SpO2 upon arrival and 94% with 4 L of nasal cannula. Patient does have a PEG tube Day of Onset: December 29, 2024 Medication Reconciliation Allergies: Coded Allergies: vancomycin (Verified Allergy, Intermediate, RASH, 12/29/24) Scheduled Clobazam (Clobazam), 20 MG GT BID, (Reported) Clonazepam (Clonazepam), 1 TAB GT HS, (Reported) Famotidine (Famotidine), 1 TABLET GT BID, (Reported) Lacosamide (Vimpat), 200 MG GT BID, (Reported) Lactose-Reduced Food/Fiber (Jevity 1.2 Herbert Liquid), 5 CAN GT DAILY, (Reported) Levetiracetam (Keppra), 20 ML PO Q12H, (Reported) Loratadine (Children's Claritin), 10 ML GT DAILY, (Reported) Methocarbamol (Methocarbamol), 1 TAB GT QAM, (Reported) Valproic Acid (As Sodium Salt) (Valproate Sodium), 750 MG GT HS, (Reported) [centrum 9 mg/15mL], 10 ML GT DAILY, (Reported) Scheduled PRN Albuterol Sulfate (Albuterol Sulfate), 1 VIAL NEB Q8H PRN for wheezing, (Reported) Bisacodyl (Bisacodyl), 1 SUPP RC DAILY PRN for constipation, (Reported) Diazepam (Diastat Acudial), 10 MG RC PRN PRN for seizures, (Reported) Eucalyptus Oil/Menthol/Camphor (Vicks Vaporub Ointment), 50 GM TP PRN PRN for cough & congestion, (Reported) Sennosides/Docusate Sodium (Senna-S Tablet), 2 TAB GT BID PRN for constipation, (Reported) Discontinued Medications Levetiracetam (Levetiracetam), 1,500 MG GT BID Discontinued Reason: patient no longer taking Valproic Acid (As Sodium Salt) (Valproic Acid), 750 MG GT BID Discontinued Reason: patient no longer taking Past Medical History Past Medical History: *GRAIN BLENDER*, Seizures, Vertigo Patient History: Patient reports no known family medical history. Alcohol Use: None Drug Use: none Lives with: Other Lives In: Assisted Care Occupation: disabled Review of Systems All Other Systems at this time: Reviewed and Negative Physical Exam Physical Exam General: Alert, no apparent distress. Neck: Full range of motion. Respiratory: Crackles Chest: No accessory muscle use. Cardiovascular: Regular rate and rhythm, no murmurs. Gastrointestinal: Soft, nontender,large right sided umbilical hernia Neurologic: Oriented x1 Psychiatric: Normal mood and affect. Skin: pale Progress Results/Orders Results/Orders Orders - SMITH GAMBINO AUTO DRIVER Culture Blood (12/29/24 09:34) Saline Lock (12/29/24 09:34) Oxygen (12/29/24 09:34) Chest,Single View (12/29/24 11:20) Page Hospitalist (12/29/24 ) Completed Orders - SMITH GAMBINO AUTO DRIVER Cbc/Diff (12/29/24 09:34) BMP (12/29/24 09:34) PBNP (12/29/24 09:34) Lacticsepsis (12/29/24 09:34) Chest,Single View (12/29/24 11:20) Normal Saline 1000ml (Sodium Chloride 10 (12/29/24 12:20) MG (12/29/24 11:20) Medications Received in ER Medications (Trade) Dose Ordered Sig/Kevin Route PRN Reason Start Time Stop Time Status Last Admin Dose Admin (sodium chloride 1000ml IV soln) 1,000 ml ONCE ONCE IVB 12/29/24 12:20 12/29/24 12:21 DC 12/29/24 12:49 1,000 ML Vital Signs 12/29/24 12/29/24 12/29/24 12/29/24 09:36 09:42 09:42 11:45 Temp 98.8 Pulse 106 98 Resp 18 18 18 B/P (MAP) 113/61 102/74 (83) Pulse Ox 94 95 93 O2 Delivery Nasal Cannula* O2 Flow Rate 4.0 4 4.0 FiO2 36 12/29/24 12:45 Pulse 94 Resp 18 B/P (MAP) 122/74 (90) Pulse Ox 93 O2 Flow Rate 4.0 Laboratory Tests Test 12/29/24 11:20 12/29/24 11:32 White Blood Count 8.4 Red Blood Count 4.44 L Hemoglobin 15.0 Hematocrit 43.3 Mean Corpuscular Volume 97.7 Mean Corpuscular Hemoglobin 33.7 H Mean Corpuscular Hemoglobin Concent 34.5 Red Cell Distribution Width 12.7 Platelet Count 211 Mean Platelet Volume 9.9 Neutrophils (%) (Auto) 71.9 Lymphocytes (%) (Auto) 18.6 L Monocytes (%) (Auto) 9.2 Eosinophils (%) (Auto) 0.2 Basophils (%) (Auto) 0.1 Neutrophils # (Auto) 6.1 Lymphocytes # (Auto) 1.6 Monocytes # (Auto) 0.8 Eosinophils # (Auto) 0.0 Basophils # (Auto) 0.0 CBC Comment Sodium Level 134 L Potassium Level 4.6 Chloride Level 98 L Carbon Dioxide Level 32.6 H Anion Gap 3 L Blood Urea Nitrogen 8 Creatinine 0.51 L Estimated GFR/1.73 m2 > 90 BUN/Creatinine Ratio 15.7 Glucose Level 77 Lactic Acid Level 2.1 H Calcium Level 9.0 Magnesium Level 1.9 Pro-B-Type Natriuretic Peptide 85 Albumin 2.7 L Chemistry Comments Procalcitonin < 0.05 Microbiology Date/Time Source Procedure Growth Status 12/29/24 11:32 Blood Arm Right Blood Culture - Preliminary NEGATIVE (LESS THAN 24 HOURS) Resulted Medical Decision Making Findings Initially I was concerned about Respiratory aspiration based on patient's acute hypoxia, altered mental status and history of aspiration. Still awaiting imaging. However his laboratory values indicate decreased kidney function and related lactic likely secondary to dehydration. Still I can not explain patient's change in alertness and acute hypoxia. requesting hospital admission Differential Dx:Considerations: Include: dehydration, Delirium Tr., DKA, encephalopathy, hypercalcemia, HHNC, hypoglycemia, hypernatremia, hyponatremia, hypoxia, postictal, closed head injury, C-spine injury, CVA, mass lesion, subarachnoid hemorrhage, drug overdose, encephalopathy, ETOH intoxication, medication toxicity, infection - meningitis, infection - sepsis, infection - UTI, heart failure, renal failure, respiratory failure, hyperthermia, hypothermia, other Departure Disposition: ADMITTED INPATIENT Impression: Primary Impression: Altered mental status Additional Impressions: Dehydration Hypoxia Referrals: NO PRIMARY CARE PROVIDER (PCP) Signature Scribe Signature: g Attestation: The note accurately reflects work and decisions made by me.Smiht Gambino - AUTO DRIVER 12/29/24 18:24 SMITH GAMBINO NP December 29, 2024 09:37
[2024-12-29 11:47] LABS: BASOPHILS % (AUTO) 0.1 % (0-1); EOSINOPHILS % (AUTO) 0.2 % (0-6); HEMATOCRIT 43.3 % (42.0-52.0); LYMPHOCYTES # (AUTO) 1.6 X10'3 (1.1-4.8); LYMPHOCYTES % (AUTO) 18.6 % (21-51); MEAN CORPUSCULAR HEMOGLOBIN 33.7 PG (27.0-31.0); MEAN CORPUSCULAR HGB CONC 34.5 g/dL (33.0-36.5); MEAN CORPUSCULAR VOLUME 97.7 FL (78-98); MEAN PLATELET VOLUME 9.9 FL (7.4-10.4); MONOCYTES # (AUTO) 0.8 X10'3 (0-0.9); MONOCYTES % (AUTO) 9.2 % (2-12); NEUTROPHILS # (AUTO) 6.1 X10'3 (1.8-7.7); NEUTROPHILS % (AUTO) 71.9 % (42-75); PLATELET COUNT 211 X10'3 (140-440); RED BLOOD COUNT 4.44 X10'6 (4.70-6.10); RED CELL DISTRIBUTION WIDTH 12.7 % (11.5-14.5); WHITE BLOOD COUNT 8.4 X10'3 (4.5-11.0)
[2024-12-29 12:03] LABS: ALBUMIN 2.7 G/DL (3.4-5.0); ANION GAP 3 (8-16); BLOOD UREA NITROGEN 8 MG/DL (7-18); BUN/CREATININE RATIO 15.7 (10.0-20.0); CHLORIDE 98 MMOL/L (99-107); CREATININE 0.51 MG/DL (0.60-1.10); GLUCOSE 77 MG/DL (70-104); POTASSIUM 4.6 MMOL/L (3.5-5.1); PRO BRAIN NATRIURETIC PEPTIDE 85 PG/ML (0-125); SODIUM 134 MMOL/L (135-145); TOTAL CARBON DIOXIDE 32.6 MMOL/L (24-32); eCRCL 140 ML/MIN; eGFR > 90 ML/MIN
--- NOTE | 2024-12-29 12:24 | RADIOLOGY REPORT ---
CHEST RADIOGRAPH Indication: cough Technique: Single frontal view of the chest was obtained COMPARISON: DI CHEST,SINGLE VIEW on DOS: 04/17/24, DI CHEST,SINGLE VIEW on DOS: 04/13/24, CHEST,SINGLE VIEW on DOS: 11/27/22 FINDINGS: Lines and Tubes: None Lungs: Mild patchy increased markings medial right lung base, unchanged from 11/27/2022 Pleura: No effusion. No pneumothorax. Cardiomediastinal contours: Unremarkable Bones: Unremarkable IMPRESSION: 1. Mild increased markings medial right lung base, stable when compared to the prior exam.
[2024-12-29] MEDS ORDERED: magnesium sulf-water 4G/100mL 100 ML IV PRN ×2 (12:45)
[2024-12-29] MEDS ORDERED: potassium Cl 40MEQ/1/2NS 520ml 520 ML IV PRN ×2 (12:45)
[2024-12-29] MEDS ORDERED: potassium Cl 20 mEq SR tablet PO PRN ×2 (12:45)
[2024-12-29] MEDS ORDERED: acetaminophen 325mg tablet PO PRN ×2 (12:45→12:50)
[2024-12-29] MEDS ORDERED: magnesium hydroxide 30ml (MOM) UD suspension PO PRN ×2 (12:45→12:50)
[2024-12-29] MEDS ORDERED: magnesium sulf-water 2g/50mL 50 ML IV PRN ×2 (12:45)
[2024-12-29] MEDS ORDERED: ondansetron/PF 4mg/2ml inj IV PRN ×2 (12:45→12:50)
[2024-12-29] MEDS ORDERED: mag hydrox/Alum hydrox/simeth 30ml oral suspension PO PRN ×2 (12:45→12:50)
[2024-12-29] MEDS ORDERED: magnesium Cl slow-release 64mg tablet PO PRN (12:45)
[2024-12-29] MEDS: normal saline 1000ML IV soln IVB ONE (12:49)
[2024-12-29] MEDS ORDERED: docusate sod 100mg capsule PO PRN (12:50)
[2024-12-29] MEDS ORDERED: morphine 2 MG/ML inj. syringe IV PRN ×2 (12:50)
[2024-12-29 13:04] LABS: MAGNESIUM 1.9 MG/DL (1.5-2.4)
[2024-12-29] MEDS ORDERED: ipratropium/albuterol 3ml nebule NEB PRN (13:05)
[2024-12-29] MEDS ORDERED: LEVE100S PO (13:09)
[2024-12-29] MEDS ORDERED: VALP500V2 GT (13:10)
[2024-12-29] MEDS: normal saline 1000ml 1,000 ML IV SCH (13:43)
[2024-12-29] MEDS: CefTRIAXone/D5W-Rocephin 1gm 50 ML IV SCH (13:43)
[2024-12-29] MEDS: azithromycin/NS 500mg/250ml 250 ML IV SCH (15:02)
--- NOTE | 2024-12-29 15:15 | HISTORY AND PHYSICAL-Residence ---
History & Physical Providers to CC Resident Creating Document: ARTHURMAVERICK, RES ~ History of Present Illness Primary Medical Doctor: SARAHY Conklin Reason for Admit\Complaint: Acute respiratory failure from aspiration pneumonia History of Present Illness A 39 years old male who is residing at [facility] facility with PMH of developmental delay complicated from cerebral palsy, s/p G and J tube feeding, history of seizure disorders, hospitalization history for pneumonia, has to use oxygen with 2 L/min at nighttime who was brought in by the [facility] to ER for progressive tachycardia and hypoxic episode around 82-85% SpO2 along with nonproductive cough progressive unusual lethargic with a concern of aspiration pneumonia, and abnormal smelly urine with normal color. Patient was seen in ER bedside but nonverbal, most of the history [facility] who stated that the patient was found to have progressive and unusual lethargy with confusion and altered mental status this morning. The patient usually able to follow commands but unable to follow simple commands and coughing a lot but the patient could not produce mucus. The patient did not have fever with chills and rigors , nausea and vomiting and regurgitation after G and J-tube feeding, and diarrhea as per PAD CUTTER. The requirements for oxygen lately is progressive and increasing as compared to his baseline 2 L/min at nighttime. LV and also reported that the patient has smelly urine output starting from this morning and changing color but denies dysuria and hematuria at the moment. LV and did not report any witnessed evidence of choking by patient. Allergies: Coded Allergies: vancomycin (Verified Allergy, Intermediate, RASH, 12/29/24) Home Medications Home Medications Active Reported Valproate Sodium (Valproic Acid (As Sodium Salt)) 500 Mg/5 Ml (100 Mg/Ml) Vial 750 Mg GT HS Keppra (Levetiracetam) 100 Mg/Ml Solution 20 Ml PO Q12H 30 Days [centrum 9 mg/15mL] 10 Ml GT DAILY Children's Claritin (Loratadine) 5 Mg/5 Ml Solution 10 Ml GT DAILY Albuterol Sulfate (Albuterol) 2.5 Mg/3 Ml Vial.neb 1 Vial NEB Q8H PRN Methocarbamol 750 Mg Tablet 1 Tab GT QAM Clonazepam 1 Mg Tablet 1 Tab GT HS Vimpat (Lacosamide) 200 Mg Tablet 200 Mg GT BID Clobazam 10 Mg Tablet 20 Mg GT BID Vicks Vaporub Ointment (Eucalyptus Oil/Menthol/Camphor) 50 Gm Oint...g. 50 Gm TP PRN PRN Jevity 1.2 Herbert Liquid (Lactose-Reduced Food/Fiber) 237 Ml Liquid 5 Can GT DAILY Famotidine 20 Mg Tablet 1 Tablet GT BID Diastat Acudial (Diazepam) 1 Each Kit 10 Mg RC PRN PRN Bisacodyl 10 Mg Supp.rect 1 Supp RC DAILY PRN Senna-S Tablet (Sennosides/Docusate Sodium) 1 Each Tablet 2 Tab GT BID PRN Past Medical History Past Medical History PMH of developmental delay complicated from cerebral palsy, s/p G and J tube feeding, history of seizure disorders, hospitalization history for pneumonia, has to use oxygen with 2 L/min at nighttime Past Surgical History Surgical History Comment No significant past surgical history Family History Family History: Patient reports no known family medical history. Past Social History Social History Comment Currently living at the group house and taking care by LVNs, developmental delay from the cerebral palsy, bed-bound Alcohol Use: None Drug Use: None Lives with: Other Lives In: Assisted Care Occupation: disabled ROS All Other Systems: Reviewed and Negative ROS RS were reviewed, WNL except for the above-mentioned in HPI. Exam Vitals: Vital Signs Date Time Temp Pulse Resp B/P (MAP) Pulse Ox O2 Delivery O2 Flow Rate FiO2 12/29/24 12:45 94 18 122/74 (90) 93 4.0 12/29/24 09:42 Nasal Cannula* 36 12/29/24 09:36 98.8 General: General: Awake, nonverbal, could not assess for confusion and orientation, not agitated, not in acute distress, well cooperated during the physical. HEENT: HEENT: Conjunctive are pink, sclerae clear, no icterus, pupil is equal in both sides, reactive to light, no ear discharge, no pharyngeal erythema or an edema, mouth and lips are dry. Neck: Neck: Supple, no JVD, no lymphadenopathy and thyromegaly. Chest: Lungs: Equal air entry on both lungs, no bilateral basal crackles and bronchial breath sounds. Cardiovascular: Heart: S1-S2 regular sinus rhythm and, regular rate, no gallops, no rubs, no murmurs Abdomen: Abdomen: No visible peristalsis, Bowel sounds present on auscultation, soft, nontender, no guarding, no rigidity Extremities: Extremities: No obvious deformities except for the cerebral palsy features, no pitting edema bilaterally, capillary refill intact, able to wiggle toes both sides, peripheral pulsations are intact on both sides Central Nervous System: MATERIAL LISTER: No focal neurological deficits, cerebral palsy Musculoskeletal: Musculoskeletal: No joint swelling, deformities, inflammations, and no scoliosis and back tenderness Skin: Skin: No active skin lesions and rashes Diagnostic Data Last Recorded Lab Results: 12/29/24 1120 12/29/24 1120 Additional Plan A 39 years old male who is residing at [facility] facility with PMH of developmental delay complicated from cerebral palsy, s/p G and J tube feeding, history of seizure disorders, hospitalization history for pneumonia, has to use oxygen with 2 L/min at nighttime who was brought in by the [facility] P[facility] to ER for progressive tachycardia and hypoxic episode around 82-85% SpO2 along with nonproductive cough progressive unusual lethargic with a concern of aspiration pneumonia, and abnormal smelly urine with normal color. # acute hypoxic hypercapnic respiratory failure possibly from aspiration pneumonia # SIRS from pneumonia # lactic acidosis- improved # Hx of aspiration Pneumonia # U/L cerebral palsy with quadriplegia - maintaining pulse oximetry 95% on nasal cannula 4 L -titrated to oxygen to his baseline 2 L at night as much as possible as tolerated -ipratropium/albuterol inhalation q.4 hours as needed and RT eval -started IV ceftriaxone and Zosyn daily -sent out sputum culture and sensitivity -no white count elevation, procalcitonin<0.05 -lactic acid 2.1, rechecked after 2 hours of IV fluids showing 0.7 -continue IV sodium chloride 0.9% 70ml/hr - proBNP 81 WNL -monitor tube feeding and aspiration precautions. -CXR showed Mild increased markings medial right lung base, stable when compared to the prior exam. # Acute metabolic encephalopathy from acute hypoxic hypercapnic respiratory failure Vs possible UTI # hyper ammonia -pending UA C&S to follow up -no hypoglycemia/hyperglycemia -ammonia 47, last time admission was 70s with no apparent elevated LFTs and liver failure -mildly laxative with p.o. lactulose 20 g b.i.d. and adjust as per bowel movement # electrolyte imbalance-hyponatremia, hypochloremia # selective hypoalbuminemia -continue IV sodium chloride 0.9% 70 mL/hr -encourage protein diet through G and J-tube feeding CODE STATUS: Full code DVT prophylaxis: Sc heparin Analgesia/sedation: IV morphine as needed Lines/tubes: Peripheral IV GI prophylaxis: None Nutrition: G and J-tube feeding Prognosis: Guarded Disposition: Continue medical management including IV fluids and antibiotics, aspiration precautions, UA C&S pending, acute metabolic encephalopathy monitoring, PT eval and DC plan. Resident MD attestation: Patient was seen and examined with attending MD, Dr. Michelle GIBSON MD Internal Medicine Resident, PGY2 [facility] Date of Service: December 29, 2024 Billing Provider: ARACELIS SANCHEZ MD Common Visit Codes: 71302-OISCNST INP/OBS CARE (HIGH) Secondary Visit Codes: [id number] CARE PLAN 30 MINUTES MAVERICK GIBSON, RES December 29, 2024 15:15 ARACELIS SANCHEZ MD December 29, 2024 19:17
[2024-12-29 18:30] VITALS: BP 118/70; PULSE 87; RESP 20; TEMP 97.8; O2SAT 93
[2024-12-29 19:30] VITALS: RESP 20; O2SAT 93
[2024-12-29] MEDS: heparin, porcine 5000 units/ml vial SQ SCH (20:00)
[2024-12-29] MEDS: lactulose 20gm/30ml cup PO SCH (20:00)
[2024-12-29] MEDS: docusate sod 100mg capsule PO SCH (20:00)
[2024-12-29] MEDS ORDERED: lactulose 20gm/30ml cup PO SCH (20:00)
[2024-12-29] MEDS: K and/or MAG REPLACEMENT MC SCH (20:00)
[2024-12-29] MEDS: furosemide 20 MG/2 ML vial IV ONE (20:06)
[2024-12-29 20:52] LABS: BILIRUBIN,URINE NEGATIVE (Neg); CLARITY,URINE CLEAR (Clear); COLOR,URINE YELLOW (Yellow); GLUCOSE, URINE NEGATIVE (Neg); KETONES,URINE NEGATIVE (Neg); LEUKOCYTE ESTERASE ,URINE MODERATE (Neg); NITRITES, URINE NEGATIVE (Neg); OCCULT BLOOD,URINE NEGATIVE (Neg); PH,URINE 7.5 (4.8-8.0); PROTEIN,URINE NEGATIVE (Neg); UROBILINOGEN,URINE 0.2 E.U/dL (0.2-1.0)
[2024-12-29 21:10] LABS: UA COLLECTION TYPE NON-SPECIFIED
[2024-12-29 21:12] LABS: BACTERIA,URINE 1+ /HPF (Neg); RBC,URINE 0-2 /HPF (0-2); SQUAMOUS EPITHELIAL CELL,UR NONE SEEN /LPF (FEW)
[2024-12-29 22:00] VITALS: BP 106/62; PULSE 81; RESP 18; TEMP 97.8; O2SAT 100
[2024-12-29] MEDS: metroNIDAZOLE-Flagyl 500mg/NS 100 ML IV SCH (22:37)
[2024-12-30] VITALS (8 sets, daily range): BP systolic 98–130; BP diastolic 58–76; PULSE 68–114; RESP 15–20; TEMP 97.6–99.5; O2SAT 92–95
[2024-12-30] MEDS ORDERED: POLY119P2 GT (05:40)
[2024-12-30] MEDS ORDERED: VALP250S26 GT ×2 (05:40)
[2024-12-30] MEDS ORDERED: DOCU50LI24 GT (05:40)
[2024-12-30] MEDS ORDERED: MUPI22OI30 TOP (05:40)
[2024-12-30] MEDS ORDERED: LACO10SO GT (05:40)
[2024-12-30 05:41] LABS: BASOPHILS % (AUTO) 0.4 % (0-1); EOSINOPHILS % (AUTO) 0.5 % (0-6); HEMATOCRIT 43.4 % (42.0-52.0); HEMOGLOBIN 15.5 g/dl (14.0-17.9); LYMPHOCYTES # (AUTO) 1.6 X10'3 (1.1-4.8); LYMPHOCYTES % (AUTO) 23.5 % (21-51); MEAN CORPUSCULAR HEMOGLOBIN 34.3 PG (27.0-31.0); MEAN CORPUSCULAR HGB CONC 35.7 g/dL (33.0-36.5); MEAN CORPUSCULAR VOLUME 95.9 FL (78-98); MEAN PLATELET VOLUME 10.2 FL (7.4-10.4); MONOCYTES # (AUTO) 0.7 X10'3 (0-0.9); MONOCYTES % (AUTO) 10.3 % (2-12); NEUTROPHILS # (AUTO) 4.4 X10'3 (1.8-7.7); NEUTROPHILS % (AUTO) 65.3 % (42-75); PLATELET COUNT 203 X10'3 (140-440); RED BLOOD COUNT 4.53 X10'6 (4.70-6.10); RED CELL DISTRIBUTION WIDTH 12.5 % (11.5-14.5); WHITE BLOOD COUNT 6.7 X10'3 (4.5-11.0)
[2024-12-30 05:56] LABS: INR 1.1 INR; PROTHROMBIN TIME 10.8 SECONDS (9.0-12.0)
[2024-12-30 06:05] LABS: ALANINE AMINOTRANSFERASE 17 U/L (12-78); ALBUMIN/GLOBULIN RATIO 0.7 (1.1-1.5); ALKALINE PHOSPHATASE 149 IU/L (46-116); ANION GAP 7 (8-16); ASPARTATE AMINO TRANSFERASE 17 U/L (10-37); BILIRUBIN,TOTAL 0.9 MG/DL (0.1-1.0); BLOOD UREA NITROGEN 10 MG/DL (7-18); BUN/CREATININE RATIO 20.4 (10.0-20.0); CALCIUM 9.4 MG/DL (8.5-10.1); CHLORIDE 101 MMOL/L (99-107); CREATININE 0.49 MG/DL (0.60-1.10); GLUCOSE 75 MG/DL (70-104); MAGNESIUM 1.8 MG/DL (1.5-2.4); POTASSIUM 3.9 MMOL/L (3.5-5.1); SODIUM 139 MMOL/L (135-145); TOTAL CARBON DIOXIDE 30.9 MMOL/L (24-32); TOTAL PROTEIN 7.1 G/DL (6.4-8.2); eCRCL 146 ML/MIN; eGFR > 90 ML/MIN
--- NOTE | 2024-12-30 07:55 | RADIOLOGY REPORT ---
INDICATION: abd pain TECHNIQUE: Multiple real-time sonographic images were obtained of the right upper quadrant. COMPARISON: None FINDINGS/IMPRESSION: The liver demonstrates heterogeneous echotexture without focal mass lesions. Th e liver measures 12.6 cm. Patient unable to tolerate rest of the exam.
[2024-12-30] MEDS: furosemide 20 MG/2 ML vial IV ONE (12:10)
[2024-12-30] MEDS ORDERED: acetaminophen 325mg tablet PEG PRN (15:52)
[2024-12-30] MEDS ORDERED: mag hydrox/Alum hydrox/simeth 30ml oral suspension PEG PRN (15:53)
[2024-12-30] MEDS ORDERED: potassium Cl 20 mEq SR tablet PEG PRN ×2 (15:54→15:55)
[2024-12-30] MEDS ORDERED: magnesium hydroxide 30ml (MOM) UD suspension PEG PRN (15:54)
[2024-12-30] MEDS ORDERED: levetiracetam 100mg/ml oral solution 5ml UD cup PO SCH ×2 (18:06→18:08)
--- NOTE | 2024-12-30 18:51 | PROGRESS NOTE- Residence ---
Progress Note - Resident Providers to CC Resident Creating Document: MEHUL GOFF, HEIDI ~ Central Line/PICC still needed: No [place]-Non Protocol [place] Indications Met/Not Met: F/C Indications Not Met Antibiotic Timeout Antibiotic Ordered?: Yes Subjective Patient had not slept all night due to which during the time of exam, he was deep asleep and woke up minimally. Sitter at bedside. Objective Vital Signs Date Time Temp Pulse Resp B/P (MAP) Pulse Ox O2 Delivery O2 Flow Rate FiO2 12/30/24 17:05 68 12/30/24 17:02 130/76 (94) 12/30/24 10:00 97.6 15 95 Nasal Cannula 3.0 12/29/24 22:00 36 Result Diagram: 12/30/24 0443 12/30/24 0443 General: Sleeping comfortably. HEENT: Conjunctiva pink, Sclera clear, Mucus Membranes moist. Poor oral dentition Resp: Unlabored. Lungs clear to auscultation bilaterally. Heart: Regular Rate and rhythm, normal S1 and S2 without murmur, rub or gallop. Abdomen: Soft and non tender no organomegaly Extremities: No cyanosis,clubbing or edema. Contracture of the right hand greater than the left hand Skin: Warm and Dry. Coagulation Studies Laboratory Tests Test 12/30/24 04:43 Prothrombin Time 10.8 SECONDS (9.0-12.0) INR International Normalized Ratio 1.1 INR Coagulation Comments Assessment Assessment This is a 39-year-old male patient with a medical history of developmental delay who was brought into the hospital due to altered mentation when compared to his baseline with increased lethargy, hypoxic episodes with desaturation between 82- 85% and tachycardia. He was being evaluated and managed in the hospital for aspiration pneumonia and UTI. Plan Plan 1. Acute hypoxic hypercapnic respiratory failure possibly from aspiration pneumonia # SIRS from pneumonia # lactic acidosis- improved # Hx of aspiration Pneumonia # U/L cerebral palsy with quadriplegia - maintaining pulse oximetry 95% on nasal cannula 4 L -titrated to oxygen to his baseline 2 L at night as much as possible as tolerated -ipratropium/albuterol inhalation q.4 hours as needed and RT eval -started IV ceftriaxone and Zosyn daily -sent out sputum culture and sensitivity -no white count elevation, procalcitonin<0.05 -lactic acid 2.1, rechecked after 2 hours of IV fluids showing 0.7 -continue IV sodium chloride 0.9% 70ml/hr - proBNP 81 WNL -monitor tube feeding and aspiration precautions. -CXR showed Mild increased markings medial right lung base, stable when compared to the prior exam. 12/30/2024: Patient continues to be stable. Mild febrile episode at 99.5 of T- max noted today in the morning. - continue IV Rocephin and Zithromax (day two) 2. Acute metabolic encephalopathy: Likely secondary to aspiration pneumonia versus UTI vs Hyperammonemia Baseline status of lethargy present secondary to the seizure disorder and medications -pending UA C&S to follow up -no hypoglycemia/hyperglycemia -ammonia 47, last time admission was 70s with no apparent elevated LFTs and liver failure -mildly laxative with p.o. lactulose 20 g b.i.d. and adjust as per bowel movement 12/30/2024: - liver demonstrate heterogeneous echotexture indicating possible hepatic steatosis - However, platelets and coagulation within normal limits. Albumin mildly reduced which could also be secondary to inadequate nutrition versus chronic disease - Repeat ammonia in the morning. It was likely for hyperammonemia to be coming from different sources like high-protein diet from the enteral nutrition. Follow prealbumin for nutritional status. - Other etiologies could also include increased metabolism 3. Electrolyte imbalance- Resolved Selective hypoalbuminemia -continue IV sodium chloride 0.9% 70 mL/hr -encourage diet via nutrition through the J tube 4. Ongoing diarrheal episodes: Had 3 episodes of watery diarrhea last night and two today in the morning Stool for C difficile and WBCs as well as pathogens ordered - we will consider adding rifaximin if the patient continues to have diarrheal episodes for SIBO 5. Epilepsy: 12/30/2024: -patient had a a seizure episode as he had not received his home medications - home medications of Keppra 2000 mg b.i.d., valproic acid 750 mg HS and 500 mg daily restarted - maintain seizure precautions, fall precautions and aspiration precautions CODE STATUS: Full code DVT prophylaxis: Sc heparin Analgesia/sedation: IV morphine as needed Lines/tubes: Peripheral IV GI prophylaxis: None Nutrition: G and J-tube feeding Prognosis: Guarded Disposition: Continue medical management including IV fluids and antibiotics, aspiration precautions, UA C&S pending, acute metabolic encephalopathy monitoring, PT eval and DC plan. Maintain seizure precautions and continue medications for epilepsy. Mehul Goff PGY2, Internal medicine resident Date of Service: December 30, 2024 Billing Provider: ARACELIS SANCHEZ MD Common Visit Codes: [id number] INP/OBS CARE(HIGH) MEHUL GOFF, RES December 30, 2024 18:51 ARACELIS SANCHEZ MD December 30, 2024 21:02
[2024-12-30] MEDS: levetiracetam 100mg/ml oral solution 5ml UD cup PEG SCH (19:34)
[2024-12-30] MEDS: clonazePAM 1mg tablet PEG SCH (21:01)
[2024-12-30] MEDS: lactulose 20gm/30ml cup PEG SCH (21:02)
[2024-12-30] MEDS: docusate sodium 100mg/10ml UD cup PEG SCH (21:02)
[2024-12-30] MEDS: valproic acid 250mg/5ml UD oral syrup PEG SCH (21:03)
[2024-12-31] VITALS (7 sets, daily range): BP systolic 106–114; BP diastolic 63–78; PULSE 85–110; RESP 13–24; TEMP 98.1–98.7; O2SAT 91–98
[2024-12-31 06:10] LABS: BASOPHILS % (AUTO) 0.5 % (0-1); EOSINOPHILS % (AUTO) 0.5 % (0-6); HEMATOCRIT 45.5 % (42.0-52.0); HEMOGLOBIN 15.7 g/dl (14.0-17.9); LYMPHOCYTES # (AUTO) 2.5 X10'3 (1.1-4.8); LYMPHOCYTES % (AUTO) 50.3 % (21-51); MEAN CORPUSCULAR HEMOGLOBIN 33.7 PG (27.0-31.0); MEAN CORPUSCULAR HGB CONC 34.6 g/dL (33.0-36.5); MEAN CORPUSCULAR VOLUME 97.4 FL (78-98); MEAN PLATELET VOLUME 10.2 FL (7.4-10.4); MONOCYTES # (AUTO) 0.7 X10'3 (0-0.9); NEUTROPHILS # (AUTO) 1.7 X10'3 (1.8-7.7); NEUTROPHILS % (AUTO) 34.7 % (42-75); PLATELET COUNT 224 X10'3 (140-440); RED BLOOD COUNT 4.67 X10'6 (4.70-6.10); RED CELL DISTRIBUTION WIDTH 12.8 % (11.5-14.5); WHITE BLOOD COUNT 4.9 X10'3 (4.5-11.0)
[2024-12-31 06:23] LABS: ALANINE AMINOTRANSFERASE 18 U/L (12-78); ALBUMIN/GLOBULIN RATIO 0.7 (1.1-1.5); ALKALINE PHOSPHATASE 146 IU/L (46-116); ANION GAP 6 (8-16); ASPARTATE AMINO TRANSFERASE 19 U/L (10-37); BILIRUBIN,TOTAL 0.4 MG/DL (0.1-1.0); BLOOD UREA NITROGEN 20 MG/DL (7-18); BUN/CREATININE RATIO 33.9 (10.0-20.0); CALCIUM 9.2 MG/DL (8.5-10.1); CHLORIDE 105 MMOL/L (99-107); CREATININE 0.59 MG/DL (0.60-1.10); GLUCOSE 94 MG/DL (70-104); PREALBUMIN 19.2 MG/DL (19-36); SODIUM 143 MMOL/L (135-145); TOTAL CARBON DIOXIDE 31.9 MMOL/L (24-32); TOTAL PROTEIN 7.1 G/DL (6.4-8.2); eCRCL 121 ML/MIN; eGFR > 90 ML/MIN
[2024-12-31] MEDS: furosemide 20 MG/2 ML vial IV SCH (07:33)
[2024-12-31] MEDS: valproic acid 250mg/5ml UD oral syrup PEG SCH (07:35)
--- NOTE | 2024-12-31 16:40 | PROGRESS NOTE- Residence ---
Progress Note - Resident Providers to CC Resident Creating Document: MENDEZ STAFFORD RES ~ Antibiotic Timeout Antibiotic Ordered?: Yes Subjective Seen and examined the patient at bedside. No active seizures. No new complaints. Objective Vital Signs Date Time Temp Pulse Resp B/P (MAP) Pulse Ox O2 Delivery O2 Flow Rate FiO2 12/31/24 11:09 98.7 103 20 109/69 (82) 95 12/31/24 10:19 Nasal Cannula* 2 28 Result Diagram: 12/31/2452212/31/24522 General: Sleeping comfortably. HEENT: Conjunctiva pink, Sclera clear, Mucus Membranes moist. Poor oral dentition Resp: Unlabored. Lungs clear to auscultation bilaterally. Heart: Regular Rate and rhythm, normal S1 and S2 without murmur, rub or gallop. Abdomen: Soft and non tender no organomegaly Extremities: No cyanosis,clubbing or edema. Contracture of the right hand greater than the left hand Skin: Warm and Dry Coagulation Studies Laboratory Tests Test 12/30/24 04:43 Prothrombin Time 10.8 SECONDS (9.0-12.0) INR International Normalized Ratio 1.1 INR Coagulation Comments Advance Care Planning Advanced Care plannin - 30 Minutes Assessment Assessment This is a 39-year-old male patient with a medical history of developmental delay who was brought into the hospital due to altered mentation when compared to his baseline with increased lethargy, hypoxic episodes with desaturation between 82- 85% and tachycardia. He was being evaluated and managed in the hospital for aspiration pneumonia and UTI. Plan Plan 1. Acute hypoxic hypercapnic respiratory failure possibly from aspiration pneumonia # SIRS from pneumonia # lactic acidosis- improved # Hx of aspiration Pneumonia # U/L cerebral palsy with quadriplegia - maintaining pulse oximetry 95% on nasal cannula 4 L -titrated to oxygen to his baseline 2 L at night as much as possible as tolerated -ipratropium/albuterol inhalation q.4 hours as needed and RT eval -started IV ceftriaxone and Zosyn daily -sent out sputum culture and sensitivity -no white count elevation, procalcitonin<0.05 -lactic acid 2.1, rechecked after 2 hours of IV fluids showing 0.7 -continue IV sodium chloride 0.9% 70ml/hr - proBNP 81 WNL -monitor tube feeding and aspiration precautions. -CXR showed Mild increased markings medial right lung base, stable when compared to the prior exam. 12/30/2024: Patient continues to be stable. Mild febrile episode at 99.5 of T- max noted today in the morning. - continue IV Rocephin and Zithromax (day two) 12/31/2024: - Patient is stable and afebrile - we are continuing IV Rocephin and Zithromax day three. - Diuresing with Lasix 20 mg IV - echocardiography showed ejection fraction of 65-70% with normal LV, RV, La. Trace MR, trace TR, trace NV. 2. Acute metabolic encephalopathy 2/2 a) UTI b)Hyperammonemia likely 2/2 Valproate -pending UA C&S to follow up -no hypoglycemia/hyperglycemia -ammonia 47, last time admission was 70s with no apparent elevated LFTs and liver failure -mildly laxative with p.o. lactulose 20 g b.i.d. and adjust as per bowel movement 12/30/2024: - liver demonstrate heterogeneous echotexture indicating possible hepatic steatosis - However, platelets and coagulation within normal limits. Albumin mildly reduced which could also be secondary to inadequate nutrition versus chronic disease - Repeat ammonia in the morning. It was likely for hyperammonemia to be coming from different sources like high-protein diet from the enteral nutrition. Follow prealbumin for nutritional status. - Other etiologies could also include increased metabolism 12/31/2024: - ammonia is in upward trend and it could be secondary to antiepileptic therapy(valproate) - Urine cultures are negative 3. Electrolyte imbalance- Resolved Selective hypoalbuminemia -continue IV sodium chloride 0.9% 70 mL/hr -encourage diet via nutrition through the J tube 4. Ongoing diarrheal episodes: Had 3 episodes of watery diarrhea last night and two today in the morning Stool for C difficile and WBCs as well as pathogens ordered we will consider adding rifaximin if the patient continues to have diarrheal episodes for SIBO 5. Epilepsy: 12/30/2024: -patient had a a seizure episode as he had not received his home medications - home medications of Keppra 2000 mg b.i.d., valproic acid 750 mg HS and 500 mg daily restarted - maintain seizure precautions, fall precautions and aspiration precautions 12/31/2024: - no seizures on today and we are continuing Keppra 2000 b.i.d., valproic acid 750 mg HS and 500 mg daily. - maintain seizure precautions, fall precautions and aspiration precautions CODE STATUS: Full code DVT prophylaxis: Sc heparin Analgesia/sedation: IV morphine as needed Lines/tubes: Peripheral IV GI prophylaxis: None Nutrition: G and J-tube feeding Prognosis: Guarded Mendez Stafford PGY1, Internal medicine resident Date of Service: December 31, 2024 Billing Provider: ARACELIS SANCHEZ MD Common Visit Codes: [id number] INP/OBS CARE(HIGH) MENDEZ STAFFORD, RES December 31, 2024 16:40 ARACELIS SANCHEZ MD December 31, 2024 21:20
[2025-01-01 00:15] VITALS: PULSE 95; RESP 20; O2SAT 95
[2025-01-01 04:47] LABS: BASOPHILS % (AUTO) 0.6 % (0-1); EOSINOPHILS % (AUTO) 0.9 % (0-6); HEMATOCRIT 44.9 % (42.0-52.0); HEMOGLOBIN 15.4 g/dl (14.0-17.9); LYMPHOCYTES # (AUTO) 2.5 X10'3 (1.1-4.8); LYMPHOCYTES % (AUTO) 59.9 % (21-51); MEAN CORPUSCULAR HEMOGLOBIN 33.8 PG (27.0-31.0); MEAN CORPUSCULAR HGB CONC 34.3 g/dL (33.0-36.5); MEAN CORPUSCULAR VOLUME 98.6 FL (78-98); MEAN PLATELET VOLUME 9.2 FL (7.4-10.4); MONOCYTES # (AUTO) 0.4 X10'3 (0-0.9); MONOCYTES % (AUTO) 9.2 % (2-12); NEUTROPHILS # (AUTO) 1.2 X10'3 (1.8-7.7); NEUTROPHILS % (AUTO) 29.4 % (42-75); PLATELET COUNT 241 X10'3 (140-440); RED BLOOD COUNT 4.55 X10'6 (4.70-6.10); RED CELL DISTRIBUTION WIDTH 12.6 % (11.5-14.5); WHITE BLOOD COUNT 4.2 X10'3 (4.5-11.0)
[2025-01-01 05:04] LABS: ALANINE AMINOTRANSFERASE 17 U/L (12-78); ALBUMIN 2.8 G/DL (3.4-5.0); ALBUMIN/GLOBULIN RATIO 0.7 (1.1-1.5); ALKALINE PHOSPHATASE 134 IU/L (46-116); ANION GAP 5 (8-16); ASPARTATE AMINO TRANSFERASE 17 U/L (10-37); BILIRUBIN,TOTAL 0.3 MG/DL (0.1-1.0); BLOOD UREA NITROGEN 18 MG/DL (7-18); CALCIUM 9.1 MG/DL (8.5-10.1); CHLORIDE 109 MMOL/L (99-107); CREATININE 0.53 MG/DL (0.60-1.10); GLUCOSE 123 MG/DL (70-104); MAGNESIUM 2.2 MG/DL (1.5-2.4); POTASSIUM 4.1 MMOL/L (3.5-5.1); SODIUM 147 MMOL/L (135-145); TOTAL CARBON DIOXIDE 33.5 MMOL/L (24-32); TOTAL PROTEIN 6.9 G/DL (6.4-8.2); eCRCL 135 ML/MIN; eGFR > 90 ML/MIN
[2025-01-01 07:00] VITALS: BP 93/58; PULSE 73; RESP 14; TEMP 97.8; O2SAT 96
[2025-01-01 07:17] VITALS: RESP 16; O2SAT 95
[2025-01-01 08:00] VITALS: RESP 16; O2SAT 95
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
[2025-01-01 10:00] VITALS: BP 131/76; PULSE 95; RESP 18; TEMP 97.5
[2025-01-01 10:46] VITALS: PULSE 104; RESP 20; O2SAT 94
[2025-01-01] MEDS ORDERED: AMOX-580 GT (13:41)
[2025-01-01] MEDS ORDERED: FURO-150 GT (13:43)
--- NOTE | 2025-01-01 16:28 | DISCHARGE SUMMARY-Residence ---
Discharge Summary Providers to CC Resident Creating Document: SHELLBENNETT JONESKATESH, HEIDI ~ Discharge Summary Admission Diagnosis: Acute respiratory failure from CAP Vs CHF exacerbation Hospital Course DATE OF ADMISSION: 12/29/2024 DATE OF DISCHARGE: 01/01/2025 Chest x-ray on 12/29/2024 IMPRESSION: 1. Mild increased markings medial right lung base, stable when compared to the prior exam. Abdominal ultrasound on 12/30/2024 FINDINGS/IMPRESSION: The liver demonstrates heterogeneous echotexture without focal mass lesions. The liver measures 12.6 cm. Patient unable to tolerate rest of the exam. Echocardiogram on 12/31/2024 Overall LVEF is 65-70%. Normal LV size and wall thickness. Overall systolic function is normal. RV is normal size and function. Trileaflet AV appears normal without stenosis or insufficiency. Mild MV annular calcification without stenosis. Trace regurgitation. TV appears structurally normal with trace regurgitation. Normal PV without stenosis, physiologic insufficiency. Normal pericardium. No effusion. Discharge Diagnosis\Comment: Acute hypoxemic hypercapnic respiratory failure Aspiration pneumonia Sepsis on POA Acute metabolic encephalopathy UTI Hyperammonemia Diarrhea Seizure Operations\Procedures: None Consultants: None Complications: None Condition on DC: Stable New Medications: Amox Tr/Potassium Clavulanate 875/125 MG (Augmentin 875/125 MG) 875 Mg-125 Mg Tablet 1 TAB GT BID for 7 Days, #14 TAB Furosemide* (Lasix*) 20 Mg Tablet 1 TAB GT DAILY for 15 Days, #30 TAB Continued Medications: [centrum 9 mg/15mL] () 10 ML GT DAILY Clobazam (Clobazam) 10 Mg Tablet 20 MG GT BID Clonazepam (Clonazepam) 1 Mg Tablet 1 TAB GT HS Docusate Sodium (Docusate Sodium) 50 Mg/5 Ml Liquid 5 ML GT BID, ML 0 Refills Famotidine (Famotidine) 20 Mg Tablet 1 TABLET GT BID, TABLET 5 Refills Lacosamide (Lacosamide) 10 Mg/Ml Solution 30 ML GT BID Levetiracetam (Keppra) 100 Mg/Ml Solution 20 ML PO Q12H for 30 Days, #300 ML 0 Refills Loratadine (Children's Claritin) 5 Mg/5 Ml Solution 10 ML GT DAILY, ML 0 Refills Methocarbamol (Methocarbamol) 750 Mg Tablet 1 TAB GT QAM, TAB 0 Refills Mupirocin* (Bactroban*) 22 Gm Tube 1 APPLIC TOP TID for 14 Days, GM apply to affected area(s) Polyethylene Glycol 3350 (Miralax) 17 Gram/Dose Powder 17 GM GT DAILY for constipation, #255 GM 0 Refills dissolve in water Sennosides/Docusate Sodium (Senna-S Tablet) 1 Each Tablet 2 TAB GT BID PRN for constipation Valproic Acid (As Sodium Salt) (Valproic Acid) 250 Mg/5 Ml Solution 10 ML GT DAILY Valproic Acid (As Sodium Salt) (Valproic Acid) 250 Mg/5 Ml Solution 15 ML GT HS Discharge Summary: HPI at the time of admission per admitting physician A 39 years old male who is residing at [facility] with PMH of developmental delay complicated from cerebral palsy, s/p G and J tube feeding, history of seizure disorders, hospitalization history for pneumonia, has to use oxygen with 2 L/min at nighttime who was brought in by the [facility] INSTALLATION SUPERVISOR to ER for progressive tachycardia and hypoxic episode around 82-85% SpO2 along with nonproductive cough progressive unusual lethargic with a concern of aspiration pneumonia, and abnormal smelly urine with normal color. Patient was seen in ER bedside but nonverbal, most of the history were taken from the [facility] INSTALLATION SUPERVISOR who stated that the patient was found to have progressive and unusual lethargy with confusion and altered mental status this morning. The patient usually able to follow commands but unable to follow simple commands and coughing a lot but the patient could not produce mucus. The patient did not have fever with chills and rigors , nausea and vomiting and regurgitation after G and J-tube feeding, and diarrhea as per INSTALLATION SUPERVISOR. The requirements for oxygen lately is progressive and increasing as compared to his baseline 2 L/min at nighttime. LV and also reported that the patient has smelly urine output starting from this morning and changing color but denies dysuria and hematuria at the moment. LV and did not report any witnessed evidence of choking by patient Course in the hospital This is a 39-year-old male patient with a medical history of developmental delay who was brought into the hospital due to altered mentation when compared to his baseline with increased lethargy, hypoxic episodes with desaturation between 82- 85% and tachycardia. He was being evaluated and managed in the hospital for aspiration pneumonia and UTI, acute hypoxemic hypercapnic respiratory failure, sepsis. White counts are normal, procalcitonin, proBNP is normal, lactic acid is elevated to 2.1 and then went down 2.7 after giving the IV fluids. Patient was treated with oxygen, albuterol ipratropium nebulizations, ceftriaxone Zithromax. Chest x-ray showed mild increased markings medial right lung base stable when compared to the previous exam. Echocardiography showed 65-70% with normal LV, RV, LE. Trace MR, TR, OR. We diuresed the patient with the Lasix 20 mg. UTI was treated with ceftriaxone. Ammonium levels were elevated. Patient received lactulose 20 g. Urine cultures were negative. Received Nutrition via G-tube. Patient had watery diarrhea for three episodes and got subsided. Patient had a seizure episode on 12/30/2024 and we continued Keppra, valproic acid. Patient received seizure precautions, fall precautions, aspiration precautions. Examination at the time of discharge Vital Signs Date Time Temp Pulse Resp B/P (MAP) Pulse Ox O2 Delivery O2 Flow Rate FiO2 01/01/25 10:46 104 20 94 Nasal Cannula* 2 28 01/01/25 10:00 97.5 131/76 (94) Examination General: Sleeping comfortably. HEENT: Conjunctiva pink, Sclera clear, Mucus Membranes moist. Poor oral dentition Resp: Unlabored. Lungs clear to auscultation bilaterally. Heart: Regular Rate and rhythm, normal S1 and S2 without murmur, rub or gallop. Abdomen: Soft and non tender no organomegaly Extremities: No cyanosis,clubbing or edema. Contracture of the right hand greater than the left hand Skin: Warm and Dry Laboratory Tests Test 12/30/24 21:19 12/31/24 05:23 01/01/25 04:27 01/01/25 08:55 Glucometer 124 mg/dl White Blood Count 4.9 X10'3 4.2 X10'3 Red Blood Count 4.67 X10'6 4.55 X10'6 Hemoglobin 15.7 g/dl 15.4 g/dl Hematocrit 45.5 % 44.9 % Mean Corpuscular Volume 97.4 FL 98.6 FL Mean Corpuscular Hemoglobin 33.7 PG 33.8 PG Mean Corpuscular Hemoglobin Concent 34.6 g/dL 34.3 g/dL Red Cell Distribution Width 12.8 % 12.6 % Platelet Count 224 X10'3 241 X10'3 Mean Platelet Volume 10.2 FL 9.2 FL Neutrophils (%) (Auto) 34.7 % 29.4 % Lymphocytes (%) (Auto) 50.3 % 59.9 % Monocytes (%) (Auto) 14.0 % 9.2 % Eosinophils (%) (Auto) 0.5 % 0.9 % Basophils (%) (Auto) 0.5 % 0.6 % Neutrophils # (Auto) 1.7 X10'3 1.2 X10'3 Lymphocytes # (Auto) 2.5 X10'3 2.5 X10'3 Monocytes # (Auto) 0.7 X10'3 0.4 X10'3 Eosinophils # (Auto) 0.0 X10'3 0.0 X10'3 Basophils # (Auto) 0.0 X10'3 0.0 X10'3 CBC Comment Sodium Level 143 MMOL/L 147 MMOL/L Potassium Level 4.0 MMOL/L 4.1 MMOL/L Chloride Level 105 MMOL/L 109 MMOL/L Carbon Dioxide Level 31.9 MMOL/L 33.5 MMOL/L Anion Gap 6 5 Blood Urea Nitrogen 20 MG/DL 18 MG/DL Creatinine 0.59 MG/DL 0.53 MG/DL Estimated GFR/1.73 m2 > 90 ML/MIN > 90 ML/MIN BUN/Creatinine Ratio 33.9 34.0 Glucose Level 94 MG/DL 123 MG/DL Calcium Level 9.2 MG/DL 9.1 MG/DL Magnesium Level 2.0 MG/DL 2.2 MG/DL Total Bilirubin 0.4 MG/DL 0.3 MG/DL Aspartate Amino Transf (AST/SGOT) 19 U/L 17 U/L Alanine Aminotransferase (ALT/SGPT) 18 U/L 17 U/L Alkaline Phosphatase 146 IU/L 134 IU/L Ammonia 52 UMOL/L Total Protein 7.1 G/DL 6.9 G/DL Albumin 3.0 G/DL 2.8 G/DL Globulin 4.1 G/DL 4.1 G/DL Albumin/Globulin Ratio 0.7 0.7 Prealbumin 19.2 MG/DL Chemistry Comments SARS-CoV-2 Antigen (Rapid) Negative Test 01/01/25 09:15 5/6/25 15:32 Glucometer 154 mg/dl 122 mg/dl Discharge advise New Medications: Amox Tr/Potassium Clavulanate 875/125 MG (Augmentin 875/125 MG) 875 Mg-125 Mg Ta blet b.i.d. for seven days Furosemide* (Lasix*) 20 Mg Tablet Q 24 H for one month. Continued Medications: [centrum 9 mg/15mL] Clobazam 10 Mg Tablet Clonazepam 1 Mg Tablet Docusate Sodium 50 Mg/5 Ml Liquid Famotidine 20 Mg Tablet Lacosamide 10 Mg/Ml Solution Levetiracetam (Keppra) 100 Mg/Ml Solution Loratadine (Children's Claritin) 5 Mg/5 Ml Solution Methocarbamol 750 Mg Tablet Mupirocin* (Bactroban*) 22 Gm Tube apply to affected area(s) Polyethylene Glycol 3350 (Miralax) 17 Gram/Dose Powder dissolve in water Sennosides/Docusate Sodium (Senna-S Tablet) 1 Each Tablet Valproic Acid (As Sodium Salt) (Valproic Acid) 250 Mg/5 Ml Solution Valproic Acid (As Sodium Salt) (Valproic Acid) 250 Mg/5 Ml Solution FUP WITH PCP VISIT ER OR CALL 911 IF EMERGENCY. *Problems/Diagnosis: (1) Acute respiratory failure with hypoxia and hypercapnia (2) Aspiration pneumonia (3) Sepsis (4) Acute metabolic encephalopathy (5) UTI (urinary tract infection) (6) Hyperammonemia (7) Protein malnutrition (8) Seizures (9) Pneumonia Status: Acute (10) Cerebral palsy, quadriplegic Status: Acute (11) Altered mental status Status: Acute (12) Seizure Status: Acute (13) ACUTE RESPIRATORY FAILURE Status: Acute Total Time Spent on D/C: > 30 Minutes Addendum poss int bact overgrowth resulting in hyperammonemia, dc on xifaxan Date of Service: January 01, 2025 Billing Provider: ARACELIS SANCHEZ MD Common Visit Codes: [id number] DISCH DAY >30min MENDEZ STAFFORD, HEIDI January 01, 2025 16:12 ARACELIS SANCHEZ MD January 01, 2025 19:30
[2025-01-01] MEDS ORDERED: RIFA550T PO (19:27)
== END 2025-01-01 17:40 | disposition home or self-care (01) | DRG 720 ==
LOC: ER 09:31 → ED HOLD 12:47 → SUR 3N 16:59
PROVIDERS: ADMIT Internal Medicine; ATTEND Internal Medicine
DX: A41.9 Sepsis, unspecified organism (principal); J96.01 Acute respiratory failure with hypoxia; J69.0 Pneumonitis due to inhalation of food and vomit; G93.41 Metabolic encephalopathy; E72.20 Disorder of urea cycle metabolism, unspecified; E46 Unspecified protein-calorie malnutrition; Z20.822 Contact with and (suspected) exposure to COVID-19; E86.0 Dehydration; R62.50 Unspecified lack of expected normal physiological development in childhood; N39.0 Urinary tract infection, site not specified; G40.909 Epilepsy, unspecified, not intractable, without status epilepticus; J96.02 Acute respiratory failure with hypercapnia; G80.9 Cerebral palsy, unspecified; Z79.899 Other long term (current) drug therapy; Z88.1 Allergy status to other antibiotic agents; Z68.24 Body mass index [BMI] 24.0-24.9, adult
CPT/HCPCS: 36415; 71045; 76700; 80048; 80053; 81001; 82140; 82948; 83605; 83735; 83880; 84134; 84145; 85025; 85610; 87040; 87045; 87046; 87081; 87088; 87811; 89055; 93308; 94760; 96361; 96365; 96367; 96375; 99285; A4349; A6213; A6590; G0378; J0456; J0696; J1644; J1938; J1953; J3490; J7030; J7040

== ENCOUNTER 2025-04-09 19:59 | Emergency (ER) | payer MEDICAID ==
[~2025-04-09 19:59] MED LIST changes: -ALBU2.5V10 NEB; -BISA10SU11 RC; -DIAZ1KIT2 RC; +DOCU50LI24 GT; -EUCA50OI5 TP; +LACO10SO GT; -LACO200T2 GT; -LACT-193 GT; +LEVE100S PO; -LEVE250T GT; +MUPI22OI30 TOP; +POLY119P2 GT; +RIFA550T PO; +VALP250S26 GT; -VALP250S4 GT
[2025-04-09 20:21] VITALS: TEMP 98.8
--- NOTE | 2025-04-09 21:54 | Physician Documentation ---
History of Present Illness ~ Chief Complaint: G-Tube Problems Stated Complaint: CLOG J TUBE Time Seen by MD: 21:16 Primary Medical Doctor: SARAHY Conklin HPI Patient who is significantly delayed presents to the emergency room with clogged J-tube. Patient has both a G-tube and a J-tube. He receives medications through his G-tube and feedings through his J-tube. It was reported that has J- tube stopped working this morning. Attempts at flushing and D clogging with the probe were unsuccessful at his living facility therefore they came in here to be evaluated. We are able to get medical records from [facility] in his seems that his J-tube was just recently replaced April 01 at [facility] after being clogged by interventional radiologist. Medication Reconciliation Allergies: Coded Allergies: vancomycin (Verified Allergy, Intermediate, RASH, 12/29/24) Scheduled Clobazam (Clobazam), 20 MG GT BID, (Reported) Clonazepam (Clonazepam), 1 TAB GT HS, (Reported) Docusate Sodium (Docusate Sodium), 5 ML GT BID, (Reported) Famotidine (Famotidine), 1 TABLET GT BID, (Reported) Lacosamide (Lacosamide), 30 ML GT BID, (Reported) Levetiracetam (Keppra), 20 ML PO Q12H, (Reported) Loratadine (Children's Claritin), 10 ML GT DAILY, (Reported) Methocarbamol (Methocarbamol), 1 TAB GT QAM, (Reported) Mupirocin* (Bactroban*), 1 APPLIC TOP TID, (Reported) Polyethylene Glycol 3350 (Miralax), 17 GM GT DAILY, (Reported) Rifaximin (Xifaxan), 1 TAB PO Q12H Valproic Acid (As Sodium Salt) (Valproic Acid), 10 ML GT DAILY, (Reported) Valproic Acid (As Sodium Salt) (Valproic Acid), 15 ML GT HS, (Reported) [centrum 9 mg/15mL], 10 ML GT DAILY, (Reported) Scheduled PRN Sennosides/Docusate Sodium (Senna-S Tablet), 2 TAB GT BID PRN for constipation, (Reported) Past Medical History Past Medical History: *INSURANCE JOB TITLES*, Seizures, Vertigo Patient History: Patient reports no known family medical history. Alcohol Use: None Drug Use: none Lives with: Other Lives In: Assisted Care Occupation: disabled Review of Systems ROS All review of systems negative except as per HPI Physical Exam Vital Signs: Temperature: 98.8, Heart Rate: 72, Respiratory Rate: 16, BP: 118/88, Pulse Oximetry: 98 Oxygen Flow Rate: 0 Physical Exam General: Patient is awake, alert, in no acute distress Head: Normocephalic and atraumatic. Eyes: Conjunctival normal. EOMI. PERRL. ENT: Mucous membranes moist. Neck: Supple, trachea is midline. Chest: Clear to auscultation bilaterally without rales, rhonchi, or wheezes. There is no accessory muscle use or retractions. Cardiac: RRR without murmurs, gallops, or rubs. Abd: Soft, nondistended, nontender, G-tube and J-tube in place without erythema. Progress Results/Orders Results/Orders Vital Signs 04/09/25 20:21 Temp 98.8 Pulse 72 Resp 16 B/P (MAP) 118/88 Pulse Ox 98 O2 Flow Rate 0 Medical Decision Making Findings Patient presents to the emergency room for evaluation of clogged J-tube. Our efforts of decline fogging failed in the emergency room. Speaking with [employer] architect at bedside he does have instructions to call imaging for replacement of J-tube. He has been instructed to do this tomorrow. We have hydrated patient with IV saline. Departure Disposition: HOME / SELF CARE / HOMELESS Impression: Primary Impression: Clogged J-tube Condition: Fair Discharge Instructions: How to Care for a Feeding Tube Additional Instructions: We do not have interventional radiology at our facility to expedite treatment. This can be done in outpatient basis and I recommend calling imaging tomorrow morning to arrange for expedited J-tube replacement. Referrals: NO PRIMARY CARE PROVIDER (PCP) Education Educated: Other Educated regarding: diagnosis, treatment, need for follow up Signature Scribe Signature: No scribe Attestation: The note accurately reflects work and decisions made by me.Sourav Gunn MD 04/09/25 21:54 SOURAV GUNN MD Apr 09, 2025 21:54
[2025-04-09] MEDS: normal saline 1000ml 1,000 ML IV ONE (22:15)
[2025-04-09 23:26] VITALS: BP 117/82; PULSE 68; RESP 16; O2SAT 91
== END 2025-04-09 23:29 | disposition home or self-care (01) ==
LOC: ER 20:01
DX: K94.13 Enterostomy malfunction (principal); Z88.1 Allergy status to other antibiotic agents; Z79.899 Other long term (current) drug therapy
CPT/HCPCS: 96360; 99284; J7030